=== PATIENT | female | born 1995 | race Caucasian/White ===

== ENCOUNTER 2020-03-15 16:50 | Emergency (ER) | payer SELFPAY ==
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
[2020-03-15 17:01] VITALS: BP 157/96; PULSE 99; RESP 18; TEMP 36.8; O2SAT 97; BMI 44.4
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
[2020-03-15 17:39] VITALS: BP 137/76; PULSE 87; RESP 18; O2SAT 97
[2020-03-15] MEDS: HYDROcodone-acetaminophen 7.5-325 mg Tablet 1 TAB PO (17:40)
[2020-03-15 18:21] VITALS: BP 107/81; PULSE 88; RESP 14; O2SAT 96
== END 2020-03-15 18:21 | disposition home or self-care (01) ==
PROVIDERS: Emergency Provider Physician Assistant
DX: S83.511A Sprain of anterior cruciate ligament of right knee, initial encounter (principal); V19.9XXA Pedal cyclist (driver) (passenger) injured in unspecified traffic accident, initial encounter
CPT/HCPCS: 12345; 73562; 99281; 99283; E0114

== ENCOUNTER → 2020-05-11 11:10 | Outpatient (BNVA) | payer SELFPAY | PROVIDERS: Visit Provider Nurse Practitioner Women's Health | DX: Z01.419 Encounter for gynecological examination (general) (routine) without abnormal findings (principal); N91.2 Amenorrhea, unspecified | CPT/HCPCS: 84146; 84443; 84702; 88175 ==

== ENCOUNTER 2020-05-27 15:16 | Emergency (ER) | payer SELFPAY ==
[2020-05-27 15:29] VITALS: BP 131/77; PULSE 97; RESP 16; TEMP 36.3; O2SAT 94; BMI 50.4
--- NOTE | 2020-05-27 15:38 | ED_ITS ---
HPI - General: Chief complaint: OB/Uterine Contractions Stated complaint: and spotting Time Seen by Provider: 05/27/20 15:33 Source: patient Mode of arrival: ambulatory Limitations: no limitations History of Present Illness: HPI Narrative: 24-year-old female who believes she may be a few weeks states she went to the bathroom today and had slight spotting. She denies any large amount of bleeding or clots. She denies any abdominal pain. Patient states she has had 2+ 's last 2 days at home. Complaint: vaginal bleeding Onset (ago): minute(s) Severity: mild Relieving factors: none Exacerbating factors: none Vaginal discharge: none Date of Last Menstrual Period: 01/15/20 Associated symptoms: Deny abdominal pain, headache(s), nausea or vomiting Review of Systems Const: Denies: fever(s), chills, body aches or change in appetite Eyes: Denies: blurry vision or eye discomfort ENMT: Denies: throat pain or dental pain Card: Denies: chest pain Resp: Denies: dyspnea GI: Denies: abdominal pain, nausea, vomiting or diarrhea : Reports: vaginal bleeding Musc: Denies: neck pain or back pain Skin/Breast: Denies: rash Neuro: Denies: headache(s) Psych: Denies: depression Álvaro/Lymph: Denies: easy bruising All/Imm: Denies: urticaria PFSH ED PFSH: Medical History History of gestational hypertension History of pre-eclampsia Surgical History H/O section (~2013) 1----06/10/2014, male([facility]), 6 lbs 7.5 ozs, 38 wks, epidural, c- section delivery unreasurring monitoring, delivered by Dr Maurice Olsen, at [place], [place]. No complications H/O eye surgery (~1998) left eye History of tonsillectomy and adenoidectomy Family History Father Hyperlipidemia Hypertension Denies family history of Diabetes Heart disease Family history of thyroid problem Stroke Social History Additional social history: - Tobacco use: Denies Alcohol use: Denies Drug use: Denies Female Reproductive History: Date of last menstrual period: 01/15/20 Physical Exam Const: COMMON NORMALS: no acute distress, patient oriented x3 and healthy appearing HENMT: COMMON NORMALS: normocephalic and atraumatic HEAD & SCALP: normocephalic and atraumatic Eye: COMMON NORMALS: Equal, round and reactive pupils present and EOMs intact bilaterally PUPIL: Yes Equal, round and reactive pupils present Neck/C-Spine: COMMON NORMALS: full ROM and supple Chest: COMMONS NORMALS: normal inspection of the chest and normal palpation of entire chest wall Resp: COMMON NORMALS: normal respiratory effort, No retractions, No use of accessory muscles and clear to auscultation bilaterally AUSCULTATION: clear to auscultation bilaterally Cardio: COMMON NORMALS: regular rate, regular rhythm and No murmurs present (Cardio) RATE: regular rate RHYTHM: regular rhythm GI: COMMON NORMALS: Normal to inspection, nondistended, normoactive bowel sounds present, Soft to palpation, non-tender and no masses PALPATION: Yes Soft to palpation Extremity: COMMON NORMALS: normal to inspection and full ROM Neuro: COMMON NORMALS: patient oriented x3, moves all extremities and no focal motor deficits Psych: COMMON NORMALS: mental status grossly normal, Normal thought process present and cooperative THOUGHT PROCESS: Normal thought process present Skin: COMMON NORMALS: no rashes or lesions noted and no wounds GENERAL SKIN EXAM: no rashes or lesions noted Course Vital Signs: Vital signs: Vital Signs Temperature 97.4 F L 05/27/20 15:29 Pulse Rate 97 05/27/20 15:29 Respiratory Rate 16 05/27/20 15:29 Blood Pressure 131/77 05/27/20 15:29 Pulse Oximetry 94 05/27/20 15:29 MDM - OB/Uterine Contractions MDM Narrative: Medical decision making narrative: Patient presents here with vaginal bleeding. Patient's blood test here is negative and blood count is normal. She is having no pain and she is stable for discharge. She is to follow-up with her primary care doctor in 3 to 5 days and return if worsening. She understands and agrees to plan. Lab Data: Labs: Lab Results 05/27/20 05/27/20 Range/Units 15:42 15:42 WBC 7.7 (4.0-10.0) 10^3/ uL RBC 5.33 H (4.1-5.3) 10^6/u L Hgb 14.6 (11.5-15.3) g/dL Hct 45.2 (37.0-47.0) % MCV 84.8 (81-99) fL MCH 27.4 L (28.0-34.0) pg MCHC 32.3 (30.0-36.0) g/dL RDW 12.7 (12.1-15.1) % Plt Count 278 (130-400) 10^3/c mm MPV 11.5 H (7.4-10.4) fL Neut % (Auto) 49.5 % Lymph % (Auto) 38.7 % [place] % (Auto) 7.6 % Eos % (Auto) 3.1 % Baso % (Auto) 0.8 % Neut # (Auto) 3.8 (1.8-7.7) 10^3/u L Lymph # (Auto) 3.0 (0.8-4.8) 10^3/u L [place] # (Auto) 0.6 (0.2-0.9) 10^3/u L Eos # (Auto) 0.2 (0.0-0.8) 10^3/u L Baso # (Auto) 0.1 (0.0-0.1) 10^3/u L Nucleated RBC % (a uto) 0 % Nucleated RBCs # 0.0 /100WBC Ser , Jing i-Qnt 0.50 mIU/mL Discharge Plan Discharge Patient Disposition: Home, Self-Care Clinical Impression: Vagina bleeding Condition: Stable Prescriptions: No Action silver sulfadiazine 1 % cream 1 applic TOPICAL BID 10 Days Qty: 50 RF: 0 ibuprofen 800 mg tablet 800 mg PO TID 10 Days Qty: 30 RF: 0 ketorolac 30 mg/mL solution 60 mg IM ONCE Qty: 2 RF: 0 cyclobenzaprine 10 mg tablet 10 mg PO TID PRN (Reason: muscle spasm) Qty: 20 RF: 0 medroxyprogesterone [Provera] 10 mg tablet 10 mg PO DAILY 10 Days Qty: 10 RF: 0 norgestimate-ethinyl estradiol [Sprintec (28)] 0.25-35 mg-mcg tablet 1 tab PO DAILY Qty: 28 RF: 2 Discharge Orders: Discharge Order (Routine); Ordered 05/27/20 Ordered By: Vannessa Coleman Discharge Diet: Advance as tolerated Discharge Activity: Resume usual activity Patient Instructions: Menstruation (ED) Coding Level of Care Code ED Chief Bank Examiner for [place] Fwd Exam Comprehensive
[2020-05-27 15:48] LABS: Basophils # 0.1 10^3/uL (0.0-0.1); Basophils % 0.8 %; Eosinophils # 0.2 10^3/uL (0.0-0.8); Eosinophils % 3.1 %; Hematocrit 45.2 % (37.0-47.0); Hemoglobin 14.6 g/dL (11.5-15.3); Lymphocytes % 38.7 %; Mean Corpuscular HGB Conc 32.3 g/dL (30.0-36.0); Mean Corpuscular Hemoglobin 27.4 pg (28.0-34.0); Mean Corpuscular Volume 84.8 fL (81-99); Mean Platelet Volume 11.5 fL (7.4-10.4); Monocytes # 0.6 10^3/uL (0.2-0.9); Monocytes % 7.6 %; Neutrophils # 3.8 10^3/uL (1.8-7.7); Neutrophils % 49.5 %; Nucleated Red Blood Cells % 0 %; Platelet Count 278 10^3/cmm (130-400); Red Blood Count 5.33 10^6/uL (4.1-5.3); Red Cell Distribution Width 12.7 % (12.1-15.1); White Blood Count 7.7 10^3/uL (4.0-10.0)
[2020-05-27 17:07] VITALS: PULSE 80; RESP 16; O2SAT 95
== END 2020-05-27 17:09 | disposition home or self-care (01) ==
PROVIDERS: Emergency Provider Emergency Medicine
DX: N93.9 Abnormal uterine and vaginal bleeding, unspecified (principal)
CPT/HCPCS: 12345; 36415; 84702; 85025; 86900; 99281; 99282

== ENCOUNTER → 2020-08-31 09:09 | Outpatient (BNVA) | payer MEDICAID, SELFPAY | PROVIDERS: Visit Provider Nurse Practitioner Women's Health | DX: N91.2 Amenorrhea, unspecified (principal); Q52.5 Fusion of labia | CPT/HCPCS: 84702 ==

== ENCOUNTER → 2020-09-21 09:37 | Outpatient (BNVA) | payer MEDICAID, SELFPAY | PROVIDERS: Visit Provider Nurse Practitioner Women's Health | DX: N91.2 Amenorrhea, unspecified (principal); R10.9 Unspecified abdominal pain | CPT/HCPCS: 84702 ==

== ENCOUNTER → 2021-06-11 10:29 | Outpatient (BNVA) | payer MEDICAID, SELFPAY | PROVIDERS: PCP Nurse Practitioner Family; Visit Provider Nurse Practitioner Family | DX: M54.9 Dorsalgia, unspecified (principal); E66.01 Morbid (severe) obesity due to excess calories; M54.5 Low back pain | CPT/HCPCS: 80053; 80061; 81000; 84443; 85025 ==

== ENCOUNTER → 2022-01-09 16:06 | Outpatient (BNVA) | payer MEDICAID, SELFPAY | PROVIDERS: PCP Nurse Practitioner Family; Visit Provider Nurse Practitioner Family | DX: N93.9 Abnormal uterine and vaginal bleeding, unspecified (principal) | CPT/HCPCS: 80053; 85025 ==

== ENCOUNTER → 2022-03-20 10:06 | Outpatient (BNVA) | payer MEDICAID, SELFPAY | PROVIDERS: PCP Nurse Practitioner Family; Visit Provider Nurse Practitioner Family | DX: T14.8XXA Other injury of unspecified body region, initial encounter (principal); N91.2 Amenorrhea, unspecified; S81.859A Open bite, unspecified lower leg, initial encounter; W54.0XXA Bitten by dog, initial encounter | CPT/HCPCS: 83540; 85025 ==

== ENCOUNTER 2022-04-12 12:49 | Emergency (ER) | payer MEDICAID, SELFPAY ==
[2022-04-12 12:59] VITALS: BP 110/73; PULSE 109; RESP 16; TEMP 37.1; O2SAT 98
[2022-04-12 13:27] LABS: Add Urine Microscopic? NO; Charge for UA Resulting for Rev
[2022-04-12 13:33] LABS: HCG Qualitative Urine. Negative (Negative)
[2022-04-12 13:34] LABS: Bilirubin Urine Neg (Negative); Blood Urine Neg (Negative); Glucose Urine UA Norm (Normal); Ketones Urine Negative (Negative); Leukocyte Esterase Urine Negative (Negative); Nitrate Urine Negative (Negative); Protein Urine Neg (Negative); Urine Appearance Clear (CLEAR); Urine Color Straw (Yellow); Urobilinogen Urine Norm (Negative); pH Urine 5 (5-7)
[2022-04-12] MEDS: sodium chloride 0.9% 1,000 ML 999 ML IV (13:36)
[2022-04-12] MEDS: dexamethasone 10 mg/mL INJ IVP (14:08)
[2022-04-12] MEDS: ketorolac 30 mg/mL INJ 15 MG IVP (14:09)
[2022-04-12] MEDS: ondansetron 2 mg/ML SDV 2 mL 4 MG IVP (14:09)
[2022-04-12 14:10] VITALS: BP 121/63; O2SAT 98
[2022-04-12] MEDS: diphenhydrAMINE 50 mg/mL SDV 1mL IVP (14:42)
[2022-04-12] MEDS: haloperidol inj 5 mg/mL INJ 1 mL IVP (14:42)
[2022-04-12 15:20] VITALS: BP 110/68; PULSE 88; RESP 19; O2SAT 94
--- NOTE | 2022-04-12 16:39 | ED_ITS ---
HPI - Headache General: Chief Complaint: Headache Stated Complaint: Headache all morning Time Seen by Provider: 04/12/22 12:50 History of Present Illness: 26 yo female patient presents to ER with her typical migraine and typical symptoms. Onset at 0600 today. Pt c/o head pain that feels like a tight band and photophobia. Pt c/o n/v. pt denies any trauma or injury or changes in vision. Associated symptoms: Deny chest pain, confusion, diaphoresis, fever(s), lightheadedness, malaise, pre-syncope, rash or syncope Review of Systems Const: Denies: fever(s), chills, body aches, change in appetite, change in weight, fatigue, malaise or diaphoresis Eyes: Denies: change in vision, blurry vision, blind spots, photophobia, eye discomfort, eye discharge, eye redness, floaters or seeing flashes ENMT: Denies: throat pain, uvular edema, enlarged tonsils, odynophagia, hoarseness, mouth pain, swelling of lips/tongue, oral sores, bleeding gums, dental pain, dry mouth, ear or mastoid pain, ear discharge, change in hearing, tinnitus, disequilibrium, nasal discharge, nasal congestion, post nasal drip or sinus pain Card: Denies: chest pain, palpitations, irregular heart rhythm, edema, swelling of feet/ankles, lightheadedness, syncope, pre-syncope, dyspnea on exertion, orthopnea, leg pain with exertion or acrocyanosis Resp: Denies: dyspnea, productive cough, non-productive cough, wheezing, stridor, pain on inspiration, change in phlegm color, hemoptysis or chest congestion GI: Denies: abdominal pain, hematemesis, dysphagia, diarrhea, constipation, GI cramping, change in bowel habits or rectal pain : Denies: flank pain, difficulty voiding, dysuria, urinary frequency, urinary urgency, urinary hesitancy or hematuria Musc: Denies: neck pain, back pain, extremity pain, extremity swelling, joint pain, joint swelling, joint redness, joint warmth or deformity Skin/Breast: Denies: rash, pruritus, erythema, sores, new lesions, changes in skin color or dry skin Neuro: Denies: numbness in extremities, weakness in extremities, sensory changes, lack of coordination, difficulty walking, frequent falls, dizziness, vertigo, confusion, behavioral changes, Slurred speech present, difficulty communicating thoughts or seizure-like activity Psych: Denies: anxiety, depression, suicidal ideation or homicidal ideation Endo: Denies: polyuria, polydipsia, tired all the time, cold intolerance, excessive sweating, flushing, hot flashes or heat intolerance Álvaro/Lymph: Denies: easy bruising, easy bleeding, petechiae, purpura, enlarged lymph nodes or tender lymph nodes All/Imm: Denies: urticaria, throat swelling, tongue swelling, facial swelling, acute wheezing or itchy eyes PFSH ED PFSH: Medical History History of gestational hypertension History of pre-eclampsia Labial fusion Surgical History H/O section (~2013) 1----06/10/2014, male([facility]), 6 lbs 7.5 ozs, 38 wks, epidural, c- section delivery unreasurring monitoring, delivered by Dr Maurice Olsen, at [place], [place]. No complications H/O eye surgery (~1998) left eye History of tonsillectomy and adenoidectomy Family History Father Hyperlipidemia Hypertension Denies family history of Diabetes Heart disease Family history of thyroid problem Stroke Social History Smoking and tobacco status: never smoked Additional social history: - Tobacco use: Denies Alcohol use: Denies Drug use: Denies Female Reproductive History: Date of last menstrual period: 03/24/22 Physical Exam Const: COMMON NORMALS: no acute distress, patient oriented x3, healthy appearing, alert and well nourished GENERAL APPEARANCE: cooperative, comfortable, well kempt and well developed; not ill appearing ORIENTATION/CONSCIOUSNESS: Yes awake, Yes oriented to person, Yes oriented to place and Yes oriented to time HENMT: COMMON NORMALS: normocephalic, atraumatic, hearing grossly normal bilaterally, external ears normal, EAC's normal, TM's normal bilaterally, Normal external nose present, Normal nasal mucous membranes and turbinates present and moist oral mucous membranes HEAD & SCALP: normal to inspection, normocephalic and atraumatic FACE & SINUS: normal facial exam, sinuses nontender and face symmetric NOSE: Normal external nose present, Normal nares present, Normal nasal mucous membranes and turbinates present, No nasal discharge present and Abnormal external nose present EXTERNAL EAR: Yes external ears normal and Yes mastoids normal EXTERNAL AUDITORY CANAL: EAC's normal TYMPANIC MEMBRANE: TM's normal bilaterally MOUTH: Normal oral and palatal mucosa present, lip normal, tongue normal and Normal salivary glands and ducts present THROAT: no uvular edema Eye: COMMON NORMALS: Equal, round and reactive pupils present, EOMs intact bilaterally and conjunctivae normal GENERAL EYE: appearance normal, both eyes and all related structures EYELID: eyelids normal CONJUNCTIVA: Yes conjunctivae normal SCLERA: sclerae normal CORNEA: Yes corneas normal PUPIL: Yes Equal, round and reactive pupils present Neck/C-Spine: COMMON NORMALS: full ROM, no lymphadenopathy, supple, no meningeal signs, no JVD and Thyroid normal GENERAL: Yes normal visual inspection and Yes trachea midline THYROID: Thyroid normal CERVICAL SPINE: Yes cervical ROM normal Lymph: LYMPHATIC: no lymphadenopathy noted and no lymphedema noted Chest: COMMONS NORMALS: normal inspection of the chest and normal palpation of entire chest wall Resp: COMMON NORMALS: normal respiratory effort, No retractions, No use of accessory muscles and clear to auscultation bilaterally EFFORT & INSPECTION: Yes able to speak in complete sentences and Yes symmetric chest movement AUSCULTATION: clear to auscultation bilaterally Cardio: COMMON NORMALS: no JVD, regular rate and regular rhythm RATE: regular rate RHYTHM: regular rhythm GI: COMMON NORMALS: Normal to inspection, nondistended, normoactive bowel sounds present, Soft to palpation, non-tender, No hepatosplenomegaly present, no masses and no bruits INSPECTION: Yes normal to inspection AUSCULTATION: Yes normoactive bowel sounds PALPATION: Yes Soft to palpation and Yes No hepatosplenomegaly present PERCUSSION: normal to percussion RECTAL EXAM: deferred : COMMON NORMALS: Yes no CVA tenderness, Yes normal external appearance, Yes normal appearance of the vagina, Yes normal appearance of the cervix, Yes normal bimanual exam, Yes No adnexal tenderness and Yes no masses BLADDER/KIDNEY EXAM: Yes no CVA tenderness BIMANUAL EXAM - VAGINA & UTERUS: Yes normal bimanual exam Back/Pelvis: COMMON NORMALS: no CVA tenderness Extremity: COMMON NORMALS: normal to inspection, full ROM and capillary refill normal GENERAL: Yes normal exam except as noted Neuro: COMMON NORMALS: patient oriented x3, CN's II-XII intact bilaterally, moves all extremities, no focal motor deficits, no sensory deficits noted and gait normal SENSORIUM/ORIENTATION: Yes alert, Yes oriented to person, Yes oriented to place and Yes oriented to time MENINGEAL SIGNS: Yes no meningeal signs CRANIAL NERVES: Yes CN normal except as noted SPEECH: speech normal GAIT: Yes Normal gait present SENSORY EXAM: Yes extremities MOTOR EXAM: 5/5 motor strength present throughout Psych: COMMON NORMALS: mental status grossly normal, Normal thought process present, cooperative, normal affect, speech normal, activity/motor behavior normal, denies hallucinations, denies homicidal ideation and denies suicidal ideation APPEARANCE: Yes grossly normal and Yes well kempt ATTITUDE: Yes calm ACTIVITY/MOTOR BEHAVIOR: Yes appropriate eye contact SPEECH: Yes normal speech THOUGHT PROCESS: Normal thought process present THOUGHT CONTENT: Yes Normal thought content present ATTENTION/CONCENTRATION: Yes attention grossly intact MEMORY/COGNITION: Yes memory grossly intact INSIGHT: Good insight present (Psych) JUDGEMENT: Good judgement present (Psych) Skin: COMMON NORMALS: no rashes or lesions noted, no wounds, turgor normal, no jaundice, no petechiae and no mottling GENERAL SKIN EXAM: no rashes or lesions noted and turgor normal Course Vital Signs: Vital signs: Vital Signs Temperature 98.8 F 04/12/22 12:59 Pulse Rate 88 04/12/22 15:20 Respiratory Rate 19 H 04/12/22 15:20 Blood Pressure 110/68 04/12/22 15:20 Pulse Oximetry 94 04/12/22 15:20 MDM - Headache Medical Decision Making Patient is well appearing non toxic and in no acute distress. 26 yo female patient presents to ER with her typical migraine and typical symptoms. Onset at 0600 today. Pt c/o head pain that feels like a tight band and photophobia. Pt c/o n/v. pt denies any trauma or injury or changes in vision. Pt was treated with IV normal saline 1 liter, zofran, haldol and decadron and had resolution of syptoms. Pt has no red flag symptoms. I have advised patient to follow up with PCP for preventive treatment. Return precautions advised and home care reviewed Lab Data Laboratory Results HCG, Qual Negative (Negative) 04/12/22 13:05 Urine Color Straw (Yellow) 04/12/22 13:05 Urine Appearance Clear (CLEAR) 04/12/22 13:05 Urine pH 5 (5-7) 04/12/22 13:05 Ur Specific [place] 1.010 (1.005-1.030) 04/12/22 13:05 Urine Protein Neg (Negative) 04/12/22 13:05 Urine Glucose (UA) Norm (Normal) 04/12/22 13:05 Urine Ketones Negative (Negative) 04/12/22 13:05 Urine Blood Neg (Negative) 04/12/22 13:05 Urine Nitrate Negative (Negative) 04/12/22 13:05 Urine Bilirubin Neg (Negative) 04/12/22 13:05 Urine Urobilinogen Norm mg/dL (Negative) 04/12/22 13:05 Ur Leukocyte Esterase Negative (Negative) 04/12/22 13:05 Discharge Plan Discharge Patient Disposition: Home Clinical Impression: Migraine Condition: Stable Prescriptions: No Action rizatriptan [Maxalt] 10 mg tablet See Rx Instructions PO .COMPLEX Qty: 10 0RF Rx Instructions: take 1 tab at onset of headache; if no relief may repeat 1 tab after at least 2 hrs; max = 3 tabs/24 hr PO prenat.vits,maya,[id number]-isser Tablet 1 tab PO DAILY 0RF ibuprofen 800 mg tablet 800 mg PO TID PRN (Reason: pain) Qty: 42 0RF cyclobenzaprine 10 mg tablet 10 mg PO TID PRN (Reason: muscle spasm) Qty: 20 0RF amoxicillin-pot clavulanate 875-125 mg tablet 1 tab PO BID Qty: 20 0RF topiramate [Topamax] 50 mg tablet 50 mg PO BID Qty: 60 2RF loratadine [Claritin] 10 mg tablet 10 mg PO DAILY Qty: 30 2RF promethazine-DM 6.25-15 mg/5 mL syrup 5 - 10 ml PO Q6H PRN (Reason: cough) Qty: 240 0RF Contrave 8-90 mg tablet extended release 2 tab PO BID 30 Days Qty: 120 0RF Discharge Orders: Discharge ED (Routine); Ordered 04/12/22 Ordered By: Yumiko Bone Referrals: Nina Steen FNP-C [Primary Care Provider] - Discharge Diet: Advance as tolerated Discharge Activity: Resume usual activity Patient Instructions: Opioid Safety Activity Restrictions/Additional Instructions: Please return to ER with any worsening of symotoms Please follow up with your PCP for migraine preventative treatment Coding Level of Care Code ED Senior [employer] Developer for Conrado Loja
[2022-04-12 17:13] VITALS: BP 124/78; PULSE 81; RESP 18; O2SAT 96
== END 2022-04-12 17:15 | disposition home or self-care (01) ==
PROVIDERS: Emergency Provider Registered Nurse; PCP Nurse Practitioner Family
DX: G43.909 Migraine, unspecified, not intractable, without status migrainosus (principal)
CPT/HCPCS: 81003; 81025; 96361; 96374; 96375; 99284; J1100; J1200; J1630; J1885; J2405; J7030

== ENCOUNTER → 2022-06-20 14:22 | Outpatient (BNVA) | payer MEDICAID, SELFPAY | PROVIDERS: PCP Nurse Practitioner Family; Visit Provider Nurse Practitioner Family | DX: M54.9 Dorsalgia, unspecified (principal); K21.9 Gastro-esophageal reflux disease without esophagitis; L21.9 Seborrheic dermatitis, unspecified | CPT/HCPCS: 81000 ==

== ENCOUNTER → 2022-07-31 09:34 | Outpatient (BNVA) | payer MEDICAID, SELFPAY | PROVIDERS: PCP Nurse Practitioner Family; Visit Provider Nurse Practitioner Family | DX: R25.2 Cramp and spasm (principal); E66.01 Morbid (severe) obesity due to excess calories; M79.604 Pain in right leg; M79.605 Pain in left leg; F41.9 Anxiety disorder, unspecified | CPT/HCPCS: 80053 ==

== ENCOUNTER → 2022-08-13 13:29 | Outpatient (BNVA) | payer MEDICAID, SELFPAY | PROVIDERS: PCP Nurse Practitioner Family; Visit Provider Nurse Practitioner Family | DX: R11.0 Nausea (principal); E66.01 Morbid (severe) obesity due to excess calories; Z68.43 Body mass index [BMI] 50.0-59.9, adult | CPT/HCPCS: 80053; 80061; 84443 ==

== ENCOUNTER 2022-11-08 17:12 | Emergency (ER) | payer SELFPAY ==
[2022-11-08 17:17] VITALS: BP 149/96; PULSE 87; RESP 16; TEMP 36.5; O2SAT 97; BMI 50.6
--- NOTE | 2022-11-08 17:50 | ED_ITS ---
HPI - Female Genitourinary General: Chief complaint: Urogenital-Female Stated complaint: rash on groin Time Seen by Provider: 11/08/22 17:29 Source: patient Mode of arrival: ambulatory Limitations: no limitations History of Present Illness: 27-year-old female presents emergency room complaining of vaginal discharge and painful vaginal lesions that she describes as milk blisters . They are interlabial. Patient has had the symptoms for the last 2 weeks. She has not seen her primary care doctor. MD elicited complaint: vaginal discharge Onset (ago): week(s) (2) Location of symptoms: external genitalia Severity: mild Quality of pain: sharp Vaginal discharge: white and vaginal odor Vaginal bleeding: none Urinary symptoms: Dysuria Exacerbating factors: none Relieving factors: none Associated symptoms: Reports vaginal discharge; Deny abdominal pain, short of breath, fevers/chills, headache(s), nausea, rash, seizures, syncope, vaginal bleeding or weakness Treatment prior to arrival: none Sexual activity: Yes Date of Last Menstrual Period: 03/24/22 Review of Systems Const: Denies: fever(s), chills, body aches, change in appetite, fatigue or malaise ENMT: Denies: throat pain, ear or mastoid pain, nasal discharge or nasal congestion Card: Denies: chest pain, palpitations, irregular heart rhythm or syncope Resp: Denies: dyspnea, productive cough or non-productive cough GI: Denies: abdominal pain or nausea : Reports: dysuria and vaginal discharge; Denies: urinary frequency, urinary urgency or genital pruritis Skin/Breast: Denies: rash or pruritus Neuro: Denies: headache(s) PFSH ED PFSH: Medical History History of gestational hypertension History of pre-eclampsia Labial fusion Surgical History H/O section (~2013) 1----06/10/2014, male([facility]), 6 lbs 7.5 ozs, 38 wks, epidural, c- section delivery unreasurring monitoring, delivered by Dr Maurice Olsen, at [place], [place]. No complications H/O eye surgery (~1998) left eye History of tonsillectomy and adenoidectomy Family History Father Hyperlipidemia Hypertension Denies family history of Diabetes Heart disease Family history of thyroid problem Stroke Social History Smoking and tobacco status: never smoked Additional social history: - Tobacco use: Denies Alcohol use: Denies Drug use: Denies Female Reproductive History: Date of last menstrual period: 03/24/22 Physical Exam Const: COMMON NORMALS: no acute distress GENERAL APPEARANCE: cooperative and comfortable ORIENTATION/CONSCIOUSNESS: Yes awake, Yes oriented to person, Yes oriented to place and Yes oriented to time HENMT: COMMON NORMALS: normocephalic and atraumatic HEAD & SCALP: normocep halic and atraumatic : SPECULUM EXAM - VAGINA: No vaginal bleeding OB/EXTERNAL & SPECULUM: No vaginal bleeding OTHER: Patient placed in dorsolithotomy position and her aspect of the mine labia minora there are herpetic-like lesions noted particularly anteriorly on the left they are exquisitely tender to palpation. Patient has very difficult time with speculum exam speculum introduced white patchy exudate in the vaginal canal wet mount GC and chlamydia done. Neuro: SENSORIUM/ORIENTATION: Yes oriented to person, Yes oriented to place and Yes oriented to time Skin: COMMON NORMALS: no rashes or lesions noted GENERAL SKIN EXAM: no rashes or lesions noted Course Vital Signs: Vital signs: Vital Signs Temperature 97.7 F 11/08/22 17:17 Pulse Rate 87 11/08/22 17:17 Respiratory Rate 16 11/08/22 17:17 Blood Pressure 149/96 11/08/22 17:17 Pulse Oximetry 97 11/08/22 17:17 Oxygen Delivery Me thod 11/08/22 17:17 MDM - Female Medical Decision Making Lesions consistent at the time of exam with herpes. GC and Chlamydia are pending she also had white exudate and patches in the vaginal canal consistent with yeast infection. Treat for genital herpes with Valtrex and start Diflucan. We will call patient with other results when available. 1993 Wet mount shows trichomonas and yeast GC and Chlamydia were negative patient will be called with results of trichomonas and started on metronidazole. Medical Records I reviewed the patient's medical records. Lab Data I reviewed the patient's lab results. Discharge Plan Discharge Patient Disposition: Home Clinical Impression: Genital herpes, Vaginal candidiasis, Trichomonas vaginitis Condition: Stable Prescriptions: New Valtrex 1 gram tablet 1,000 mg PO TID 7 Days Qty: 21 0RF fluconazole 150 mg tablet 150 mg PO Q3D Qty: 2 0RF Rx Instructions: may repeat second dose 72 hrs after first dose if symptoms persist metronidazole 500 mg tablet 500 mg PO BID 7 Days Qty: 14 0RF No Action rizatriptan [Maxalt] 10 mg tablet See Rx Instructions PO .COMPLEX Qty: 10 0RF Rx Instructions: take 1 tab at onset of headache; if no relief may repeat 1 tab after at least 2 hrs; max = 3 tabs/24 hr PO prenat.vits,maya,[id number] Tablet 1 tab PO DAILY ondansetron HCl 4 mg tablet 4 mg PO Q6H PRN (Reason: nausea and vomiting) Qty: 90 1RF Ozempic 0.25 mg or 0.5 mg(2 mg/1.5 mL) pen injector See Rx Instructions SUBCUT .COMPLEX Qty: 1.5 3RF Rx Instructions: 1 mg wkly subcutaneously x 4 weeks, then 1.5 mg wkly subcutaneously; Flovent HFA 110 mcg/actuation HFA aerosol inhaler 1 puff inhalation Q12H Qty: 12 2RF omeprazole 40 mg capsule,delayed release(DR/EC) 40 mg PO DAILY 30 Days Qty: 30 0RF topiramate [Topamax] 50 mg tablet 50 mg PO BID Qty: 60 2RF loratadine [Claritin] 10 mg tablet 10 mg PO DAILY Qty: 30 2RF simvastatin 20 mg tablet 20 mg PO .QHS 30 Days Qty: 30 3RF Discharge Orders: Discharge ED (Routine); Ordered 11/08/22 Ordered By: Melecio Flores Referrals: Elsa Parker NP [Primary Care Provider] - Patient Instructions: Opioid Safety, Pain Management Activity Restrictions/Additional Instructions: You are seen for vaginal discharge patient on your exam you have herpes as well as vaginal candidiasis. We will treat the herpetic infection with acyclovir 1 g 3 times daily for 7 days. Diflucan is 1 tablet every other day 2 doses total. Follow-up with your primary care doctor. Coding Level of Care Code ED Curriculum And Assessment Director for Chg Fwd Exam Expanded Problem Focused
[2022-11-08] MEDS: ketorolac 60 mg/2 mL INJ IM (18:27)
--- NOTE | 2022-11-10 08:51 | PC.NURSE ---
PC TO PT AND INFORMED HER OF TESTING POSITIVE FOR TRICHOMONAS. SHE VERBALIZED UNDERSTANDING AND STATED THAT SHE [facility] [place] DELEGATED TO [facility] TECHNICIAN TO CALL IN [facility]ERS[facility] SHE VERBALIZED UNDERSTANDING.
== END 2022-11-08 18:25 | disposition home or self-care (01) ==
PROVIDERS: Emergency Provider Family Medicine; PCP Nurse Practitioner Family
DX: A60.00 Herpesviral infection of urogenital system, unspecified (principal); B37.31 Acute candidiasis of vulva and vagina; A59.01 Trichomonal vulvovaginitis
CPT/HCPCS: 87210; 87491; 87591; 96372; 99284; J1885

== ENCOUNTER → 2023-01-13 16:11 | Outpatient (BNVA) | payer SELFPAY | PROVIDERS: PCP Nurse Practitioner Family; Visit Provider Nurse Practitioner Family | DX: F41.9 Anxiety disorder, unspecified (principal); E66.01 Morbid (severe) obesity due to excess calories; Z68.43 Body mass index [BMI] 50.0-59.9, adult; R07.81 Pleurodynia; W19.XXXA Unspecified fall, initial encounter; E78.2 Mixed hyperlipidemia; R03.0 Elevated blood-pressure reading, without diagnosis of hypertension | CPT/HCPCS: 80053; 80061 ==

== ENCOUNTER 2023-03-15 17:31 | Emergency (ER) | payer SELFPAY ==
[2023-03-15 17:35] VITALS: BP 138/86; PULSE 82; TEMP 36.3; O2SAT 98; BMI 44.4
[2023-03-15 18:07] LABS: Bilirubin Urine Neg (Negative); Blood Urine Neg (Negative); Glucose Urine UA Norm (Normal); Ketones Urine Negative (Negative); Leukocyte Esterase Urine Trace (Negative); Nitrate Urine Negative (Negative); Protein Urine Neg (Negative); Urine Appearance Hazy (CLEAR); Urine Color Yellow (Yellow); Urobilinogen Urine Norm (Negative); pH Urine 6 (5-7)
[2023-03-15 18:08] LABS: Add Urine Culture? No; Add Urine Microscopic? YES; Bacteria Urine 1+ /hpf; Squamous Epithelial Cell Urine 15-25 /hpf (0-5)
[2023-03-15 18:20] LABS: Basophils # 0.1 10^3/uL (0.0-0.1); Basophils % 0.6 %; Eosinophils # 0.2 10^3/uL (0.0-0.8); Hematocrit 42.4 % (37.0-47.0); Hemoglobin 13.7 g/dL (11.5-15.3); Lymphocytes # 3.1 10^3/uL (0.8-4.8); Lymphocytes % 33.6 %; Mean Corpuscular HGB Conc 32.3 g/dL (30.0-36.0); Mean Corpuscular Hemoglobin 26.4 pg (28.0-34.0); Mean Corpuscular Volume 81.7 fl (81-99); Mean Platelet Volume 11.7 fL (7.4-10.4); Monocytes # 0.6 10^3/uL (0.2-0.9); Monocytes % 6.1 %; Neutrophils # 5.23 10^3/uL (1.8-7.7); Neutrophils % 57.6 %; Nucleated Red Blood Cells % 0 %; Platelet Count 315 10^3/cmm (130-400); Red Blood Count 5.19 10^6/uL (4.1-5.3); Red Cell Distribution Width 12.7 % (12.1-15.1); White Blood Count 9.1 10^3/uL (4.0-10.0)
[2023-03-15 18:33] LABS: HCG, Serum Qual Negative (Negative)
[2023-03-15 18:41] LABS: Alanine Aminotransferase 32 U/L (0-33); Albumin Level 4.5 g/dL (3.5-5.2); Alkaline Phosphatase 75 U/L (35-105); Anion Gap 12.9 (5-19); Aspartate Amino Transferase 26 U/L (0-32); Blood Urea Nitrogen 12 mg/dL (6-20); Calcium 9.4 mg/dL (8.5-10.5); Carbon Dioxide 25 mmol/L (22-29); Chloride 97 mmol/L (98-107); Globulin 2.8 g/dL (1.3-4.6); Glomerular Filtration Rate 118.2 mL/min (90-130); Glucose 95 mg/dL (65-115); Lipase 41 U/L (13-60); Osmolality Calculated 272 mOsm/kg (285-295); Potassium 3.9 mmol/L (3.5-5.1); Sodium 131 mmol/L (136-145); Total Bilirubin 0.2 mg/dL (0.15-1.2); Total Protein 7.3 g/dL (6.6-8.7)
--- NOTE | 2023-03-15 21:02 | ED_ITS ---
HPI - Abdominal Pain General: Chief Complaint: Abdominal Pain Stated Complaint: abd pains Time Seen by Provider: 03/15/23 21:02 History of Present Illness: Ms. Kline is a 27-year-old lady with history of presenting to the emergency department for left upper quadrant abdominal pain. Reports onset of symptoms gradually 3 days ago and has subsequently worsened and persisted. She notes associated nausea but no vomiting, no changes in bowel movement or changes urinating. Intensity is moderate to severe. Course has worsened. Worse with ambulation and palpation. Denies frequent similar episodes in the past. No other specific changes in health, exacerbating, or alleviating factors identified. Onset (ago): day(s) Location: LUQ Severity: severe Migration to: no migration Exacerbating factors: movement and other Associated Symptoms: Reports nausea Review of Systems General: Reports: 10 or more systems reviewed and unremarkable except in HPI and below GI: Reports: nausea COUNT INCLUDES THE [facility] ED PFSH: Medical History History of gestational hypertension History of pre-eclampsia Labial fusion Surgical History H/O section (~2013) 1----06/10/2014, male(Hebert), 6 lbs 7.5 ozs, 38 wks, epidural, c- section delivery unreasurring monitoring, delivered by Dr Maurice Olsen, at [facility], [place], [place]. No complications H/O eye surgery (~1998) left eye History of tonsillectomy and adenoidectomy Family History Father Hyperlipidemia Hypertension Denies family history of Diabetes Heart disease Family history of thyroid problem Stroke Social History Smoking and tobacco status: never smoked Substance/Drug Use: never Additional social history: - Tobacco use: Denies Alcohol use: Denies Drug use: Denies Physical Exam Const: COMMON NORMALS: alert GENERAL APPEARANCE: cooperative and well developed HENMT: COMMON NORMALS: normocephalic and atraumatic HEAD & SCALP: n ormocephalic and atraumatic Eye: COMMON NORMALS: conjunctivae normal CONJUNCTIVA: Yes conjunctivae normal SCLERA: sclerae normal Neck/C-Spine: COMMON NORMALS: supple GENERAL: Yes trachea midline Resp: COMMON NORMALS: normal respiratory effort EFFORT & INSPECTION: Yes able to speak in complete sentences Cardio: COMMON NORMALS: regular rate and regular rhythm RATE: regular rate RHYTHM: regular rhythm GI: COMMON NORMALS: Soft to palpation PALPATION: Yes Soft to palpation, Yes Tenderness to palpation present (GI) Details: LUQ, No Guarding due to palpation present (GI) and No Rigid due to palpation Extremity: GENERAL: Yes normal exam except as noted and No edema Neuro: COMMON NORMALS: moves all extremities SENSORIUM/ORIENTATION: Yes alert and No Orientation impaired Psych: COMMON NORMALS: mental status grossly normal and Normal thought process present THOUGHT PROCESS: Normal thought process present Course Vital Signs: Vital signs: Vital Signs Temperature 97.3 F L 03/15/23 17:35 Pulse Rate 78 03/15/23 23:01 Respiratory Rate 20 H 03/15/23 23:01 Blood Pressure 137/82 03/15/23 23:01 Pulse Oximetry 99 03/15/23 23:01 Oxygen Delivery Me thod Room Air 03/15/23 21:35 MDM - Abdominal Pain Medical Decision Making 27-year-old lady presenting with abdominal symptoms. Exam as above, she is nontoxic and there is no evidence of acute surgical abdomen. No significant hematologic abnormalities, perhaps mild dehydration noted on metabolic panel of the this may be erroneous given other abnormally low readings. Squamous epithelial contamination without convincing evidence of urinary tract infection on urinalysis.. CT imaging suggestive of enteritis, she has hepatic steatosis and hepatomegaly. Incidental findings and results of CT imaging discussed with patient. Most likely etiology of patient's symptoms is enteritis. He is improved with analgesia and able to tolerate p.o. intake. The results of ED evaluation were discussed with the patient including prescriptions and/or symptomatic cares (if applicable) including appropriate and responsible use, followup plan, and return precautions. The patient verbalized understanding and felt safe for discharge. Medical Records I reviewed the patient's medical records. Lab Data I reviewed the patient's lab results. 03/15/23 18:15 03/15/23 18:15 Labs/Radiology: Radiology Impressions Abdomen/Pelvis CT 03/15/23 21:14 IMPRESSION: 1. Prominent fluid in the small bowel without dilation suggestive of an enteritis, please correlate clinically 2. Hepatic steatosis. 3. Hepatomegaly. Laboratory Results WBC 9.1 10^3/uL (4.0-10.0) 03/15/23 18:15 RBC 5.19 10^6/uL (4.1-5.3) 03/15/23 18:15 Hgb 13.7 g/dL (11.5-15.3) 03/15/23 18:15 Hct 42.4 % (37.0-47.0) 03/15/23 18:15 MCV 81.7 fl (81-99) 03/15/23 18:15 MCH 26.4 pg (28.0-34.0) L 03/15/23 18:15 MCHC 32.3 g/dL (30.0-36.0) 03/15/23 18:15 RDW 12.7 % (12.1-15.1) 03/15/23 18:15 Plt Count 315 10^3/cmm (130-400) 03/15/23 18:15 MPV 11.7 fL (7.4-10.4) H 03/15/23 18:15 Neut % (Auto) 57.6 % 03/15/23 18:15 Lymph % (Auto) 33.6 % 03/15/23 18:15 [place]lier % (Auto) 6.1 % 03/15/23 18:15 Eos % (Auto) 2.0 % 03/15/23 18:15 Baso % (Auto) 0.6 % 03/15/23 18:15 Neut # (Auto) 5.23 10^3/uL (1.8-7.7) 03/15/23 18:15 Lymph # (Auto) 3.1 10^3/uL (0.8-4.8) 03/15/23 18:15 Collier # (Auto) 0.6 10^3/uL (0.2-0.9) 03/15/23 18:15 Eos # (Auto) 0.2 10^3/uL (0.0-0.8) 03/15/23 18:15 Baso # (Auto) 0.1 10^3/uL (0.0-0.1) 03/15/23 18:15 Nucleated RBC % (auto) 0 % 03/15/23 18:15 Nucleated RBCs # 0.0 /100WBC 03/15/23 18:15 Sodium 131 mmol/L (136-145) L 03/15/23 18:15 Potassium 3.9 mmol/L (3.5-5.1) 03/15/23 18:15 Chloride 97 mmol/L (98-107) L 03/15/23 18:15 Carbon Dioxide 25 mmol/L (22-29) 03/15/23 18:15 Anion Gap 12.9 (5-19) 03/15/23 18:15 BUN 12 mg/dL (6-20) 03/15/23 18:15 Creatinine 0.6 mg/dL (0.5-0.9) 03/15/23 18:15 GFR Calculation 118.2 mL/min (90-130) 03/15/23 18:15 Glucose 95 mg/dL (65-115) 03/15/23 18:15 Calculated Osmolality 272 mOsm/kg (285-295) L 03/15/23 18:15 Calcium 9.4 mg/dL (8.5-10.5) 03/15/23 18:15 Total Bilirubin 0.2 mg/dL (0.15-1.2) 03/15/23 18:15 AST 26 U/L (0-32) 03/15/23 18:15 ALT 32 U/L (0-33) 03/15/23 18:15 Alkaline Phosphatase 75 U/L (35-105) 03/15/23 18:15 Total Protein 7.3 g/dL (6.6-8.7) 03/15/23 18:15 Albumin 4.5 g/dL (3.5-5.2) 03/15/23 18:15 Globulin 2.8 g/dL (1.3-4.6) 03/15/23 18:15 Lipase 41 U/L (13-60) 03/15/23 18:15 HCG, Qual Negative (Negative) 03/15/23 18:15 Urine Color Yellow (Yellow) 03/15/23 17:45 Urine Appearance Hazy (CLEAR) A 03/15/23 17:45 Urine pH 6 (5-7) 03/15/23 17:45 Ur Specific [place] 1.020 (1.005-1.030) 03/15/23 17:45 Urine Protein Neg (Negative) 03/15/23 17:45 Urine Glucose (UA) Norm (Normal) 03/15/23 17:45 Urine Ketones Negative (Negative) 03/15/23 17:45 Urine Blood Neg (Negative) 03/15/23 17:45 Urine Nitrate Negative (Negative) 03/15/23 17:45 Urine Bilirubin Neg (Negative) 03/15/23 17:45 Urine Urobilinogen Norm mg/dL (Negative) 03/15/23 17:45 Ur Leukocyte Esterase Trace (Negative) H 03/15/23 17:45 Urine RBC None /hpf (0-2) 03/15/23 17:45 Urine WBC 5-10 /hpf (0-5) H 03/15/23 17:45 Ur Squamous Epith Cells 15-25 /hpf (0-5) H 03/15/23 17:45 Amorphous Sediment Not Reportable 03/15/23 17:45 Urine Bacteria 1+ /hpf (NONE) H 03/15/23 17:45 Discharge Plan Discharge Patient Disposition: Home Clinical Impression: Abdominal pain, Enteritis, Fatty infiltration of liver, Enlarged liver Condition: Stable Prescriptions: New ondansetron 4 mg tablet,disintegrating 4 mg PO Q8H PRN (Reason: nausea and vomiting) Qty: 15 0RF oxycodone 5 mg tablet 5 mg PO Q4H PRN (Reason: pain) Qty: 10 0RF No Action rizatriptan [Maxalt] 10 mg tablet See Rx Instructions PO .COMPLEX Qty: 10 0RF Rx Instructions: take 1 tab at onset of headache; if no relief may repeat 1 tab after at least 2 hrs; max = 3 tabs/24 hr PO prenat.vits,maya,[id number] Tablet 1 tab PO DAILY ondansetron HCl 4 mg tablet 4 mg PO Q6H PRN (Reason: nausea and vomiting) Qty: 90 1RF paroxetine HCl [Paxil] 10 mg tablet 10 mg PO DAILY 30 Days Qty: 30 0RF hydroxyzine HCl 25 mg tablet 25 mg PO TID PRN (Reason: anxiety) Qty: 90 0RF Ozempic 0.25 mg or 0.5 mg(2 mg/1.5 mL) pen injector 2 mg SUBCUT .weekly 28 Days Qty: 3 3RF lisinopril 5 mg tablet 5 mg PO DAILY 30 Days Qty: 30 0RF Flovent HFA 110 mcg/actuation HFA aerosol inhaler 1 puff inhalation Q12H Qty: 12 2RF omeprazole 40 mg capsule,delayed release(DR/EC) 40 mg PO DAILY 30 Days Qty: 30 0RF pantoprazole [Protonix] 40 mg tablet,delayed release (DR/EC) 40 mg PO DAILY Qty: 30 0RF topiramate [Topamax] 50 mg tablet 50 mg PO BID Qty: 60 2RF loratadine [Claritin] 10 mg tablet 10 mg PO DAILY Qty: 30 2RF simvastatin 40 mg tablet 40 mg PO .QHS 30 Days Qty: 30 3RF Discharge Orders: Discharge ED (Routine); Ordered 03/15/23 Ordered By: Marcus Emmanuel Referrals: Elsa Parker NP [Primary Care Provider] - Discharge Diet: Advance as tolerated and Clear Liquid Discharge Activity: Increase activity as tolerated Patient Instructions: Abdominal Pain (ED), Enteritis (ED), Opioid Safety Activity Restrictions/Additional Instructions: Thank you for visiting the emergency department. You were seen and evaluated for abdominal pain. The most likely cause of your symptoms it is related to enteritis which is nonspecific infection or inflammation of the small bowel. Given symptoms and historical factors this most likely is viral in nature. The treatment is supportive. I will prescribe antinausea medication and oxycodone. Use oxycodone cautiously as it is an opioid. You may use [id number] medications such as acetaminophen and ibuprofen for pain however please do not exceed the daily recommended dosage as listed on the packaging and please keep in mind that many namebrand medications contain the same active ingredients. Please avoid these medications if previously instructed to do so by another physician due to other underlying medical condition. Please ensure that you are staying hydrated. I recommend clear liquid diet for at least 1 day followed by slow advancing as tolerated starting with bland food. Please follow-up with your primary care provider. Return to the emergency department for uncontrolled symptoms or anything else that you are concerned about and feel needs emergency department evaluation. Coding Level of Care Code ED Iron Pourer for Conrado Loja
--- NOTE | 2023-03-15 21:14 | CTR_ITS ---
PROCEDURE INFORMATION: Exam: CT Abdomen And Pelvis With Contrast Exam date and time: 03/15/2023 9:59 PM Age: 27 years old Clinical indication: Abdominal pain; Localized; Left upper quadrant (luq); Prior surgery; Surgery type: C-sec; Additional info: Luq pain, nausea TECHNIQUE: Imaging protocol: Computed tomography of the abdomen and pelvis with contrast. Radiation optimization: All CT scans at this facility use at least one of these dose optimization techniques: automated exposure control; mA and/or kV adjustment per patient size (includes targeted exams where dose is matched to clinical indication); or iterative reconstruction. Contrast material: OMNI 350; Contrast volume: 100 ml; Contrast route: INTRAVENOUS (IV); REPORTING DATA: Count of CT and Cardiac NM exams in prior 12 months: This patient has received 0 known CTs and 0 known cardiac nuclear medicine studies in the 12 months prior to the current study. COMPARISON: CT abdomen pelvis w con* [id number] 08/10/2019 9:00 PM RADIATION DOSE METRICS: Total DLP (mGy-cm): 1242.29 FINDINGS: Liver: Hepatic steatosis. Hepatomegaly. Gallbladder and bile ducts: Normal. No calcified stones. No ductal dilation. Pancreas: Normal. No ductal dilation. Spleen: Normal. No splenomegaly. Adrenal glands: Normal. No mass. Kidneys and ureters: Normal. No hydronephrosis. Stomach and bowel: Prominent fluid in the small bowel without dilation suggestive of an enteritis, please correlate clinically Appendix: No evidence of appendicitis. Intraperitoneal space: Unremarkable. No free air. No significant fluid collection. Vasculature: Unremarkable. No abdominal aortic aneurysm. Lymph nodes: Unremarkable. No enlarged lymph nodes. Urinary bladder: Unremarkable as visualized. Reproductive: Unremarkable as visualized. Bones/joints: Unremarkable. No acute fracture. Soft tissues: Unremarkable. CT/CT abdomen pelvis w con* [id number] IMPRESSION: 1. Prominent fluid in the small bowel without dilation suggestive of an enteritis, please correlate clinically 2. Hepatic steatosis. 3. Hepatomegaly.
[2023-03-15] MEDS: iohexol 350 mg/mL 500 mL Btl (per mL) IV (21:21)
[2023-03-15 21:35] VITALS: BP 136/97; PULSE 86; RESP 20; O2SAT 97
[2023-03-15 21:42] VITALS: RESP 20; O2SAT 98
[2023-03-15] MEDS: fentaNYL 50 mcg/mL INJ 2mL IVP (21:42)
[2023-03-15] MEDS: ketorolac 30 mg/mL INJ 15 MG IVP (21:43)
[2023-03-15 23:01] VITALS: BP 137/82; PULSE 78; RESP 20; O2SAT 99
== END 2023-03-15 23:04 | disposition home or self-care (01) ==
PROVIDERS: Emergency Medicine; Emergency Provider Emergency Medicine; PCP Nurse Practitioner Family
DX: K52.9 Noninfective gastroenteritis and colitis, unspecified (principal); K76.0 Fatty (change of) liver, not elsewhere classified
CPT/HCPCS: 36415; 74177; 80053; 81001; 83690; 84703; 85025; 96374; 96375; 99285; J1885; J3010; Q9967

== ENCOUNTER 2023-05-25 16:34 | Emergency (ER) | payer SELFPAY ==
[2023-05-25 16:59] VITALS: BP 153/100; PULSE 95; RESP 14; TEMP 36.9; O2SAT 97; BMI 49.6
--- NOTE | 2023-05-25 18:38 | ED_ITS ---
HPI - General Adult General: Chief complaint: General Medical Stated complaint: sunburn Time Seen by Provider: 05/25/23 18:33 Source: patient Mode of arrival: ambulatory Limitations: no limitations History of Present Illness: 27-year-old female states she went floating on Thursday got a sunburn to bilateral lower legs. States that she had pain yesterday and worsening today along with some tingling. States her pain is sharp in nature she denies any improving or worsening factors. Associated symptoms: Deny chest pain, dyspnea, headache(s), nausea, rash or v omiting Review of Systems Const: Denies: fever(s) or chills Eyes: Denies: blurry vision ENMT: Denies: throat pain or dental pain Card: Denies: chest pain Resp: Denies: dyspnea GI: Denies: abdominal pain, nausea, vomiting or diarrhea Musc: Denies: neck pain or back pain Skin/Breast: Reports: erythema; Denies: rash Neuro: Denies: headache(s) PFS ED PFSH: Medical History History of gestational hypertension History of pre-eclampsia Labial fusion Surgical History H/O section (~2013) 1----06/10/2014, male(Hebert), 6 lbs 7.5 ozs, 38 wks, epidural, c- section delivery unreasurring monitoring, delivered by Dr Maurice Olsen, at [facility], [place], [place]. No complications H/O eye surgery (~1998) left eye History of tonsillectomy and adenoidectomy Family History Father Hyperlipidemia Hypertension Denies family history of Diabetes Heart disease Family history of thyroid problem Stroke Social History Smoking and tobacco status: never smoked Substance/Drug Use: never Additional social history: - Tobacco use: Denies Alcohol use: Denies Drug use: Denies Physical Exam Const: COMMON NORMALS: no acute distress and patient oriented x3 HENMT: COMMON NORMALS: normocephalic and atraumatic HEAD & SCALP: normocephalic and atraumatic Eye: COMMON NORMALS: conjunctivae normal CONJUNCTIVA: Yes conjunctivae normal Neck/C-Spine: COMMON NORMALS: supple Chest: COMMONS NORMALS: normal inspection of the chest Resp: COMMON NORMALS: normal respiratory effort Cardio: COMMON NORMALS: regular rate RATE: regular rate GI: INSPECTION: Yes normal to inspection Extremity: COMMON NORMALS: full ROM Neuro: COMMON NORMALS: patient oriented x3 Psych: COMMON NORMALS: mental status grossly normal Skin: NARRATIVE SKIN EXAM: Sunburn to bilateral lower legs Course Vital Signs: Vital signs: Vital Signs Temperature 98.4 F 05/25/23 16:59 Pulse Rate 95 05/25/23 16:59 Respiratory Rate 14 05/25/23 16:59 Blood Pressure 153/100 05/25/23 16:59 Pulse Oximetry 97 05/25/23 16:59 Oxygen Delivery Me thod Room Air 05/25/23 16:59 MDM - General Adult Medical Decision Making Patient presents here with a sunburn to her lower extremities she is well- appearing here did give patient pain meds we will prescribe her Naprosyn and Zof ran she is to follow-up with her PCP and return if worsening Discharge Plan Discharge Patient Disposition: Home Clinical Impression: Sunburn Condition: Stable Prescriptions: New ondansetron 4 mg tablet,disintegrating 4 mg PO Q6H PRN (Reason: nausea and vomiting) Qty: 14 0RF Naprosyn 500 mg tablet 500 mg PO BID PRN (Reason: pain) Qty: 20 0RF No Action rizatriptan [Maxalt] 10 mg tablet See Rx Instructions PO .COMPLEX Qty: 10 0RF Rx Instructions: take 1 tab at onset of headache; if no relief may repeat 1 tab after at least 2 hrs; max = 3 tabs/24 hr PO prenat.vits,maya,[id number] Tablet 1 tab PO DAILY paroxetine HCl [Paxil] 10 mg tablet 10 mg PO DAILY 30 Days Qty: 30 0RF lisinopril 5 mg tablet 5 mg PO DAILY 30 Days Qty: 30 0RF Flovent HFA 110 mcg/actuation HFA aerosol inhaler 1 puff inhalation Q12H Qty: 12 2RF omeprazole 40 mg capsule,delayed release(DR/EC) 40 mg PO DAILY 30 Days Qty: 30 0RF pantoprazole [Protonix] 40 mg tablet,delayed release (DR/EC) 40 mg PO DAILY Qty: 30 0RF hydroxyzine HCl 25 mg tablet 25 mg PO TID PRN (Reason: anxiety) Qty: 90 0RF Victoza 3-Mani 0.6 mg/0.1 mL (18 mg/3 mL) pen injector See Rx Instructions SUBCUT .COMPLEX Qty: 9 0RF Rx Instructions: inject 0.6mg subcutaneously once daily x 7 days; then 1.2mg daily, then 1.8mg daily then 2.4 (DME) pen needle, diabetic [1st Tier Unifine Pentips] 32 gauge x needle See Rx Instructions .Route Qty: 100 1RF Rx Instructions: As directed topiramate [Topamax] 50 mg tablet 50 mg PO BID Qty: 60 2RF loratadine [Claritin] 10 mg tablet 10 mg PO DAILY Qty: 30 2RF simvastatin 40 mg tablet 40 mg PO .QHS 30 Days Qty: 30 3RF oxycodone 5 mg tablet 5 mg PO Q4H PRN (Reason: pain) Qty: 10 0RF Discharge Orders: Discharge ED (Routine); Ordered 05/25/23 Ordered By: Vannessa Coleman Referrals: Elsa Parker NP [Primary Care Provider] - Discharge Diet: Advance as tolerated Discharge Activity: Resume usual activity Patient Instructions: Sunburn (ED) Coding Level of Care Code ED Ice Cream Server for Conrado Loja
[2023-05-25] MEDS: ondansetron 4 MG Tablet PO (18:48)
[2023-05-25] MEDS: HYDROcodone-acetaminophen 7.5-325 mg Tablet 1 TAB PO (18:48)
[2023-05-25 19:05] VITALS: BP 147/85; PULSE 97; O2SAT 98
== END 2023-05-25 19:06 | disposition home or self-care (01) ==
PROVIDERS: Emergency Provider Emergency Medicine; PCP Nurse Practitioner Family
DX: L55.9 Sunburn, unspecified (principal)
CPT/HCPCS: 99283; Q0162

== ENCOUNTER → 2024-03-10 10:17 | Outpatient (BNVA) | payer OTHER, SELFPAY | PROVIDERS: PCP Nurse Practitioner Family; Visit Provider Nurse Practitioner Family | DX: E66.9 Obesity, unspecified (principal); F41.9 Anxiety disorder, unspecified; E66.01 Morbid (severe) obesity due to excess calories; Z68.43 Body mass index [BMI] 50.0-59.9, adult | CPT/HCPCS: 80053; 80061; 84443; 85025 ==

== ENCOUNTER → 2024-05-30 17:00 | Outpatient (BNVA) | payer OTHER, SELFPAY | PROVIDERS: PCP Nurse Practitioner Family; Visit Provider Family Medicine | DX: M79.672 Pain in left foot (principal) | CPT/HCPCS: 73630 ==

== ENCOUNTER 2024-08-25 21:51 | Emergency (ER) | payer BC, MEDICAID, SELFPAY ==
[2024-08-25 22:03] VITALS: BP 143/81; PULSE 76; RESP 18; TEMP 36.8; O2SAT 98; BMI 44.4
--- NOTE | 2024-08-25 22:49 | ED_ITS ---
HPI - Nausea/Vomiting/Diarrhea 2 General: Chief complaint: Nausea/Vomiting/Diarrhea Stated complaint: Dehydrated\Headache\Vomiting 12 Weeks Preg Time Seen by Provider: 08/25/24 22:48 History of Present Illness: 28-year-old female comes in today for co mplaints of headache along with nausea and vomiting since last night. Patient reports that she is approximately 12 weeks . Patient appears mild discomfort. Respirations are even skin is warm and dry. Related Data Previous Rx's Medication Instructions Recorded hydroxyzine HCl 25 mg tablet 25 mg PO TID PRN anxiety #90 tabs 03/10/24 diclofenac sodium 1 % topical gel 4 g topical QID #100 grams 05/30/24 (Voltaren Arthritis Pain) clotrimazole-betamethasone 1 1 applic topical BID 4 weeks #45 06/13/24 %-0.05 % topical cream grams naproxen 500 mg tablet 500 mg PO BID PRN pain #60 tabs 06/13/24 ondansetron 4 mg disintegrating 4 mg PO Q6H PRN nausea and 06/13/24 tablet vomiting #90 tabs rizatriptan 10 mg disintegrating See Rx Instructions PO .COMPLEX 06/15/24 tablet (Maxalt-BASIC SCIENCES PROFESSOR) #10 tabs cephalexin 500 mg capsule 500 mg PO BID 5 days #10 caps 08/26/24 Allergies Allergy/AdvReac Type Severity Reaction Status Date / Time morphine Allergy ADR-Itching Verified 05/30/24 16:46 Review of Systems 2 General: Reports: 10 or more systems reviewed and unremarkable except in HPI and below PFSH ED 2 PFSH: Medical History History of gestational hypertension History of pre-eclampsia Labial fusion Surgical History H/O eye surgery (~1998) left eye H/O section (~2013) 1----06/10/2014, male(Hebert), 6 lbs 7.5 ozs, 38 wks, epidural, c- section delivery unreasurring monitoring, delivered by Dr Maurice Olsen, at [facility], [place], [place]. No complications History of tonsillectomy and adenoidectomy Family History Father Hyperlipidemia Hypertension Denies family history of Diabetes Heart disease Family history of thyroid problem Stroke Social History Smoking and tobacco/nicotine status: unknown if used tobacco/nicotine Substance/Drug Use: never Additional social history: - Tobacco use: Denies Alcohol use: Denies Drug use: Denies Physical Exam 2 Const: COMMON NORMALS: alert HENMT: COMMON NORMALS: normocephalic HEAD & SCALP: normocephalic Neck/C-Spine: COMMON NORMALS: full ROM Resp: COMMON NORMALS: normal respiratory effort and clear to auscultation bilaterally AUSCULTATION: clear to auscultation bilaterally Cardio: COMMON NORMALS: regular rate RATE: regular rate Extremity: COMMON NORMALS: normal to inspection Neuro: SENSORIUM/ORIENTATION: Yes alert Skin: COMMON NORMALS: turgor normal GENERAL SKIN EXAM: turgor normal Course 2 Vital Signs: Vital signs: Vital Signs Temperature 98.3 F 08/25/24 22:03 Pulse Rate 74 08/26/24 00:00 Respiratory Rate 21 H 08/26/24 00:00 Blood Pressure 117/65 08/26/24 00:00 Pulse Oximetry 99 08/26/24 00:00 Oxygen Delivery Me thod Room Air 08/25/24 22:03 MDM - Nausea/Vomiting/Diarrhea Medical Decision Making 28-year-old female comes in today for complaints of headache with nausea vomiting starting last night. Patient is approximately 12 weeks . Patient reports some episodes but her headache is worse today which prompted her to come to the ER. Patient believes that she might be dehydrated. Vital signs notes some mild elevation of blood pressure at 143/81. Differential diagnosis includes but not limited to hypertension during , hyperemesis gravidarum, UTI, electrolyte imbalance, preeclampsia. CBC CMP was unremarkable. Urinalysis had a large amount of white blood cells. Patient was treated for headache with Reglan and diphenhydramine with good results. Patient was also given 1 L of IV fluids for possible dehydration. Patient was also given ceftriaxone 1 g for a urinary tract infection as noted by urinalysis. Patient reports understanding of care plan need for follow-up or return to the ER. Lab Data 08/25/24 23:03 08/25/24 23:03 Laboratory Results WBC 11.59 10^3/uL (3.29-11.43) H 08/25/24 23:03 RBC 4.61 10^6/uL (3.85-5.65) 08/25/24 23:03 Hgb 13.80 g/dL (11.27-16.99) 08/25/24 23:03 Hct 39.9 % (36-47) 08/25/24 23:03 MCV 86.6 fl (85-98) 08/25/24 23:03 MCH 29.9 pg (27-33) 08/25/24 23:03 MCHC 34.6 g/dL (30-55) 08/25/24 23:03 RDW 12.1 % (12.1-15.1) 08/25/24 23:03 Plt Count 247 10^3/cmm (157-399) 08/25/24 23:03 MPV 11.3 fL (7.4-10.4) H 08/25/24 23:03 Neut % (Auto) 60.4 % 08/25/24 23:03 Lymph % (Auto) 31.1 % 08/25/24 23:03 [place] % (Auto) 5.5 % 08/25/24 23:03 Eos % (Auto) 2.1 % 08/25/24 23:03 Baso % (Auto) 0.6 % 08/25/24 23:03 Neut # (Auto) 7.01 10^3/uL (1.8-7.7) 08/25/24 23:03 Lymph # (Auto) 3.6 10^3/uL (0.8-4.8) 08/25/24 23:03 [place] # (Auto) 0.6 10^3/uL (0.2-0.9) 08/25/24 23:03 Eos # (Auto) 0.2 10^3/uL (0.0-0.8) 08/25/24 23:03 Baso # (Auto) 0.1 10^3/uL (0.0-0.1) 08/25/24 23:03 Nucleated RBC % (auto) 0 % 08/25/24 23:03 Nucleated RBCs # 0.0 /100WBC 08/25/24 23:03 Sodium 135 mmol/L (136-145) L 08/25/24 23:03 Potassium 3.5 mmol/L (3.5-5.1) 08/25/24 23:03 Chloride 102 mmol/L (98-107) 08/25/24 23:03 Carbon Dioxide 20 mmol/L (22-29) L 08/25/24 23:03 Anion Gap 16.5 (5-19) 08/25/24 23:03 BUN 6 mg/dL (6-20) 08/25/24 23:03 Creatinine 0.4 mg/dL (0.5-0.9) L 08/25/24 23:03 GFR Calculation 187.4 mL/min (90-130) H 08/25/24 23:03 Glucose 90 mg/dL (65-115) 08/25/24 23:03 Calculated Osmolality 277 mOsm/kg (285-295) L 08/25/24 23:03 Calcium 9.2 mg/dL (8.5-10.5) 08/25/24 23:03 Total Bilirubin 0.3 mg/dL (0.15-1.2) 08/25/24 23:03 AST 11 U/L (0-32) 08/25/24 23:03 ALT 9 U/L (0-33) 08/25/24 23:03 Alkaline Phosphatase 59 U/L (35-105) 08/25/24 23:03 Total Protein 6.9 g/dL (6.6-8.7) 08/25/24 23:03 Albumin 4.1 g/dL (3.5-5.2) 08/25/24 23:03 Globulin 2.8 g/dL (1.3-4.6) 08/25/24 23:03 HCG, Qual Cancelled 08/25/24 23:03 HCG, Qual Positive (Negative) H 08/25/24 23:03 Urine Color Yellow (Yellow) 08/25/24 23:03 Urine Appearance Cloudy (CLEAR) A 08/25/24 23:03 Urine pH 5.5 (5-7) 08/25/24 23:03 Ur Specific [place] 1.011 (1.005-1.030) 08/25/24 23:03 Urine Protein Negative (Negative) 08/25/24 23:03 Urine Glucose (UA) Negative (Normal) 08/25/24 23:03 Urine Ketones Trace (Negative) 08/25/24 23:03 Urine Blood Negative (Negative) 08/25/24 23:03 Urine Nitrate Negative (Negative) 08/25/24 23:03 Urine Bilirubin Negative (Negative) 08/25/24 23:03 Urine Urobilinogen 1.0 mg/dL (Negative) 08/25/24 23:03 Ur Leukocyte Esterase 2+ (Negative) A 08/25/24 23:03 Urine RBC 3-5 /hpf (0-2) 08/25/24 23:03 Urine WBC 21-50 /hpf (0-5) H 08/25/24 23:03 Ur Squamous Epith Cells 11-20 /hpf (0-5) 08/25/24 23:03 Amorphous Sediment Not Reportable 08/25/24 23:03 Urine Bacteria 4+ /hpf (NONE) H 08/25/24 23:03 Hyaline Casts 27.37 /lpf 08/25/24 23:03 No radiology studies performed this visit Discharge Plan Discharge Patient Disposition: Home Clinical Impression: UTI (urinary tract infection) during Qualifiers: Trimester: first trimester Qualified Code(s): O23.41 - Unspecified infection of urinary tract in , first trimester Condition: Stable Prescriptions: New cephalexin 500 mg capsule 500 mg PO BID 5 Days Qty: 10 0RF No Action naproxen 500 mg tablet 500 mg PO BID PRN (Reason: pain) Qty: 60 0RF clotrimazole-betamethasone 1-0.05 % cream 1 applic topical BID 28 Days Qty: 45 3RF ondansetron 4 mg tablet,disintegrating 4 mg PO Q6H PRN (Reason: nausea and vomiting) Qty: 90 0RF rizatriptan [Maxalt-BASIC SCIENCES PROFESSOR] 10 mg tablet,disintegrating See Rx Instructions PO .COMPLEX Qty: 10 0RF Rx Instructions: take 1 tab at onset of headache; if no relief may repeat 1 tab after at least 2 hrs; max = 3 tabs/24 hr PO hydroxyzine HCl 25 mg tablet 25 mg PO TID PRN (Reason: anxiety) Qty: 90 0RF diclofenac sodium [Voltaren Arthritis Pain] 1 % gel 4 g topical QID Qty: 100 0RF Rx Instructions: apply to single knee, ankle, foot; for foot includes sole/toes/top of foot Discharge Orders: Discharge ED (Routine); Ordered 08/26/24 Ordered By: Antelmo Morris Referrals: Raf Lin MD [Primary Care Provider] - Discharge Diet: Usual diet Discharge Activity: Increase activity as tolerated Patient Instructions: Urinary Tract Infection in (ED) Activity Restrictions/Additional Instructions: Drink plenty water and fluids. Take medications as directed for urinary tract infection. Follow-up with primary care or FISCAL MANAGER for further instructions. Coding Level of Care Code ED Sample Shoe Inspector And Reworker for Conrado Loja
[2024-08-25] MEDS: diphenhydrAMINE 50 mg/mL SDV 1mL 12.5 MG IVP (23:11)
[2024-08-25] MEDS: metoclopramide 5 mg/mL SDV 2 mL 10 MG IVP (23:12)
[2024-08-25 23:14] LABS: Basophils # 0.1 10^3/uL (0.0-0.1); Basophils % 0.6 %; Eosinophils # 0.2 10^3/uL (0.0-0.8); Eosinophils % 2.1 %; Hematocrit 39.9 % (36-47); Lymphocytes # 3.6 10^3/uL (0.8-4.8); Lymphocytes % 31.1 %; Mean Corpuscular HGB Conc 34.6 g/dL (30-55); Mean Corpuscular Hemoglobin 29.9 pg (27-33); Mean Corpuscular Volume 86.6 fl (85-98); Mean Platelet Volume 11.3 fL (7.4-10.4); Monocytes # 0.6 10^3/uL (0.2-0.9); Monocytes % 5.5 %; Neutrophils # 7.01 10^3/uL (1.8-7.7); Neutrophils % 60.4 %; Nucleated Red Blood Cells % 0 %; Platelet Count 247 10^3/cmm (157-399); Red Blood Count 4.61 10^6/uL (3.85-5.65); Red Cell Distribution Width 12.1 % (12.1-15.1); White Blood Count 11.59 10^3/uL (3.29-11.43)
[2024-08-25] MEDS: lactated ringers 1,000 ML 999 ML IV (23:14)
[2024-08-25 23:19] VITALS: BP 151/96; PULSE 79; O2SAT 98
[2024-08-25 23:31] LABS: Bilirubin Urine Negative (Negative); Blood Urine Negative (Negative); Glucose Urine UA Negative (Normal); Ketones Urine Trace (Negative); Leukocyte Esterase Urine 2+ (Negative); Nitrate Urine Negative (Negative); Protein Urine Negative (Negative); Specific Gravity, Urine 1.011 (1.005-1.030); Urine Appearance Cloudy (CLEAR); Urine Color Yellow (Yellow); pH Urine 5.5 (5-7)
[2024-08-25 23:33] LABS: Add Urine Microscopic? YES; Bacteria Urine 4+ /hpf; Hyaline Casts Urine 27.37 /lpf; WBC Urine 21-50 /hpf (0-5)
[2024-08-25 23:35] LABS: Alanine Aminotransferase 9 U/L (0-33); Albumin Level 4.1 g/dL (3.5-5.2); Alkaline Phosphatase 59 U/L (35-105); Anion Gap 16.5 (5-19); Aspartate Amino Transferase 11 U/L (0-32); Blood Urea Nitrogen 6 mg/dL (6-20); Calcium 9.2 mg/dL (8.5-10.5); Carbon Dioxide 20 mmol/L (22-29); Chloride 102 mmol/L (98-107); Creatinine Clr Calc Pharmacy 231.5346; Globulin 2.8 g/dL (1.3-4.6); Glomerular Filtration Rate 187.4 mL/min (90-130); Glucose 90 mg/dL (65-115); Osmolality Calculated 277 mOsm/kg (285-295); Potassium 3.5 mmol/L (3.5-5.1); Sodium 135 mmol/L (136-145); Total Bilirubin 0.3 mg/dL (0.15-1.2); Total Protein 6.9 g/dL (6.6-8.7)
[2024-08-25 23:50] LABS: HCG Qualitative Urine. Positive (Negative)
[2024-08-26] VITALS: BP 117/65; PULSE 74; RESP 21; O2SAT 99
[2024-08-26] MEDS: cefTRIAXone 1,000 mg SDV 1000 MG IVP (00:31)
[2024-08-26 00:36] VITALS: BP 122/70; PULSE 72; RESP 18; O2SAT 98
[2024-08-26 00:49] VITALS: BP 123/75; PULSE 74; O2SAT 99
== END 2024-08-26 00:45 | disposition home or self-care (01) ==
PROVIDERS: Emergency Provider Nurse Practitioner Family; PCP Family Medicine
DX: O23.41 Unspecified infection of urinary tract in pregnancy, first trimester (principal); Z3A.12 12 weeks gestation of pregnancy
CPT/HCPCS: 80053; 81001; 81025; 85025; 96361; 96374; 96375; 99284; J0696; J1200; J2765; J7120

== ENCOUNTER 2024-10-22 18:29 | Outpatient (CLI) | payer BC, MEDICAID, SELFPAY ==
[2024-10-22] VITALS (7 sets, daily range): BP systolic 121–141; BP diastolic 65–76; PULSE 83–95; RESP 16–17; TEMP 36.9; O2SAT 100
[2024-10-22 20:05] LABS: Nitrazine Paper, PH Negative
== END 2024-10-22 20:24 | disposition home or self-care (01) ==
LOC: OPOB 18:30 → OBGYN 18:31
PROVIDERS: PCP Family Medicine; Visit Provider Family Medicine
DX: O26.899 Other specified pregnancy related conditions, unspecified trimester (principal); Z3A.00 Weeks of gestation of pregnancy not specified; N89.8 Other specified noninflammatory disorders of vagina
CPT/HCPCS: 83986; 87210; 99211

== ENCOUNTER 2024-11-29 09:51 | Outpatient (CLI) | payer BC, MEDICAID, SELFPAY ==
[2024-11-29] VITALS (10 sets, daily range): BP systolic 129–150; BP diastolic 57–71; PULSE 102–112; TEMP 36.7; O2SAT 98; BMI 51.2
[2024-11-29 11:06] LABS: Basophils % 0.3 %; Eosinophils % 0.3 %; Hematocrit 33.1 % (36-47); Lymphocytes # 0.5 10^3/uL (0.8-4.8); Lymphocytes % 6.9 %; Mean Corpuscular HGB Conc 34.1 g/dL (30-55); Mean Corpuscular Hemoglobin 29.4 pg (27-33); Mean Corpuscular Volume 86.2 fl (85-98); Monocytes # 0.6 10^3/uL (0.2-0.9); Monocytes % 8.2 %; Neutrophils # 6.48 10^3/uL (1.8-7.7); Neutrophils % 83.8 %; Nucleated Red Blood Cells % 0 %; Platelet Count 222 10^3/cmm (157-399); Red Blood Count 3.84 10^6/uL (3.85-5.65); Red Cell Distribution Width 12.9 % (12.1-15.1); White Blood Count 7.72 10^3/uL (3.29-11.43)
[2024-11-29 11:09] LABS: Bilirubin Urine Negative (Negative); Blood Urine Negative (Negative); Glucose Urine UA Negative (Normal); Ketones Urine 2+ (Negative); Leukocyte Esterase Urine Negative (Negative); Nitrate Urine Negative (Negative); Protein Urine Negative (Negative); Specific Gravity, Urine 1.014 (1.005-1.030); Urine Appearance Clear (CLEAR); Urine Color Yellow (Yellow); Urobilinogen Urine 0.2 mg/dL (Negative); pH Urine 5.5 (5-7)
[2024-11-29 11:13] LABS: Add Urine Microscopic? YES; Bacteria Urine None Seen /hpf; Hyaline Casts Urine 2.05 /lpf; RBC Urine 0-2 /hpf (0-2); Squamous Epithelial Cell Urine 0-5 /hpf (0-5); WBC Urine 0-5 /hpf (0-5)
[2024-11-29] MEDS: ondansetron 2 mg/ML SDV 2 mL 8 MG IVP (11:45)
[2024-11-29] MEDS: acetaminophen 500 mg Tablet 1000 MG PO (11:45)
== END 2024-11-29 13:08 | disposition home or self-care (01) ==
LOC: OPOB 09:52 → OBGYN 09:52
PROVIDERS: PCP Family Medicine; Visit Provider Family Medicine
DX: O21.9 Vomiting of pregnancy, unspecified (principal); Z3A.00 Weeks of gestation of pregnancy not specified
CPT/HCPCS: 81001; 85025; J2405

== ENCOUNTER 2025-01-28 15:50 | Outpatient (CLI) | payer BC, MEDICAID, SELFPAY ==
[2025-01-28 15:50] VITALS: RESP 16; BMI 52.1
[2025-01-28 16:06] VITALS: BP 130/76; PULSE 90
[2025-01-28 16:26] VITALS: BP 135/75; PULSE 82
== END 2025-01-28 16:40 | disposition home or self-care (01) ==
LOC: OPOB 15:53 → OBGYN 15:53
PROVIDERS: PCP Family Medicine; Visit Provider Family Medicine
DX: O26.899 Other specified pregnancy related conditions, unspecified trimester (principal); Z3A.00 Weeks of gestation of pregnancy not specified; R10.9 Unspecified abdominal pain
CPT/HCPCS: 59025; 99211

== ENCOUNTER 2025-02-02 15:00 | Outpatient (CLI) | payer BC, MEDICAID, SELFPAY ==
[2025-02-02 14:55] VITALS: BMI 52.0
[2025-02-02 15:07] VITALS: BP 134/67; PULSE 88; TEMP 35
[2025-02-02 15:22] VITALS: BP 125/58; PULSE 82
[2025-02-02 15:37] VITALS: BP 122/58; PULSE 81
[2025-02-02] MEDS: acetaminophen 500 mg Tablet 1000 MG PO (16:11)
== END 2025-02-02 16:12 | disposition home or self-care (01) ==
LOC: OPOB 15:00 → OBGYN 15:00
PROVIDERS: PCP Family Medicine; Visit Provider Family Medicine
DX: O24.419 Gestational diabetes mellitus in pregnancy, unspecified control (principal); Z3A.00 Weeks of gestation of pregnancy not specified
CPT/HCPCS: 59025; 99211

== ENCOUNTER 2025-02-09 09:20 | Outpatient (CLI) | payer BC, MEDICAID, SELFPAY ==
[2025-02-09] VITALS (11 sets, daily range): BP systolic 121–176; BP diastolic 70–95; PULSE 66–90; BMI 52.0
[2025-02-09 11:02] LABS: Basophils % 0.4 %; Eosinophils # 0.2 10^3/uL (0.0-0.8); Eosinophils % 2.3 %; Hematocrit 33.9 % (36-47); Lymphocytes # 2.2 10^3/uL (0.8-4.8); Lymphocytes % 26.9 %; Mean Corpuscular HGB Conc 33.6 g/dL (30-55); Mean Corpuscular Hemoglobin 28.7 pg (27-33); Mean Corpuscular Volume 85.4 fl (85-98); Mean Platelet Volume 11.4 fL (7.4-10.4); Monocytes # 0.5 10^3/uL (0.2-0.9); Monocytes % 5.9 %; Neutrophils # 5.34 10^3/uL (1.8-7.7); Neutrophils % 64.1 %; Nucleated Red Blood Cells % 0 %; Platelet Count 218 10^3/cmm (157-399); Red Blood Count 3.97 10^6/uL (3.85-5.65); Red Cell Distribution Width 13.2 % (12.1-15.1); White Blood Count 8.32 10^3/uL (3.29-11.43)
[2025-02-09 11:05] LABS: Bilirubin Urine Negative (Negative); Blood Urine Negative (Negative); Glucose Urine UA Negative (Normal); Ketones Urine Negative (Negative); Leukocyte Esterase Urine Negative (Negative); Nitrate Urine Negative (Negative); Protein Urine Negative (Negative); Specific Gravity, Urine 1.004 (1.005-1.030); Urine Appearance Clear (CLEAR); Urine Color Yellow (Yellow); Urobilinogen Urine 0.2 mg/dL (Negative); pH Urine 6.5 (5-7)
[2025-02-09 11:10] LABS: Add Urine Microscopic? YES; Bacteria Urine 1+ /hpf; Hyaline Casts Urine 0-4 /lpf; RBC Urine 0-2 /hpf (0-2); Squamous Epithelial Cell Urine 0-5 /hpf (0-5); WBC Urine 0-5 /hpf (0-5)
[2025-02-09 11:18] LABS: Alanine Aminotransferase 8 U/L (0-33); Albumin Level 3.4 g/dL (3.5-5.2); Alkaline Phosphatase 120 U/L (35-105); Aspartate Amino Transferase 13 U/L (0-32); Blood Urea Nitrogen 5 mg/dL (6-20); Carbon Dioxide 20 mmol/L (22-29); Chloride 107 mmol/L (98-107); Creatinine Clr Calc Pharmacy 337.4262; Globulin 2.6 g/dL (1.3-4.6); Glomerular Filtration Rate 259.5 mL/min (90-130); Glucose 91 mg/dL (65-115); Osmolality Calculated 283 mOsm/kg (285-295); Sodium 138 mmol/L (136-145); Total Bilirubin 0.2 mg/dL (0.15-1.2); Uric Acid 4.1 mg/dL (2.4-5.7)
[2025-02-09 11:19] LABS: UA Slide Review UA Slide Review Perf
[2025-02-09 11:21] LABS: Add Urine Culture? No
[2025-02-09 11:24] LABS: Urine Creatinine 20 mg/dL (28-217); Urine Protein Random 4 mg/dL
[2025-02-09 11:26] LABS: Anion Gap 14.9 (5-19); Potassium 3.9 mmol/L (3.5-5.1)
== END 2025-02-09 13:00 | disposition home or self-care (01) ==
LOC: OPOB 09:21 → OBGYN 09:21
PROVIDERS: PCP Family Medicine; Visit Provider Family Medicine
DX: O24.419 Gestational diabetes mellitus in pregnancy, unspecified control (principal); Z3A.00 Weeks of gestation of pregnancy not specified
CPT/HCPCS: 36415; 59025; 80053; 81001; 82570; 84156; 84550; 85025; 99211

== ENCOUNTER 2025-02-11 15:16 | Outpatient (CLI) | payer BC, MEDICAID, SELFPAY ==
[2025-02-11] VITALS (11 sets, daily range): BP systolic 115–153; BP diastolic 56–86; PULSE 87–109; RESP 16; TEMP 36.6; O2SAT 98; BMI 51.3
[2025-02-11] MEDS: HYDROcodone-acetaminophen 5-325 mg Tablet 1 TAB PO (16:43)
[2025-02-11 18:08] LABS: Bilirubin Urine 1+ (Negative); Blood Urine Negative (Negative); Glucose Urine UA Negative (Normal); Ketones Urine 1+ (Negative); Leukocyte Esterase Urine Negative (Negative); Nitrate Urine Negative (Negative); Protein Urine 2+ (Negative); Specific Gravity, Urine 1.026 (1.005-1.030); Urine Appearance Turbid (CLEAR)
[2025-02-11 18:11] LABS: Bacteria Urine 4+ /hpf; Hyaline Casts Urine 29.78 /lpf; Universal Test for UA Present (0)
[2025-02-11 18:24] LABS: Add Urine Culture? No; Amorphous Sediment Urine 4+ /hpf; Urine Color Orange (Yellow)
--- NOTE | 2025-02-11 19:03 | PC.NURSE ---
Prescription called to [facility]. Voicemail left.
[2025-02-11] MEDS: cefTRIAXone 1,000 MG, lidocaine 1% 2.1 ML in SYRINGE 1 EACH 1 MG IM (19:10)
== END 2025-02-11 19:12 | disposition home or self-care (01) ==
LOC: OPOB 15:17 → OBGYN 15:18
PROVIDERS: PCP Family Medicine; Visit Provider Family Medicine
DX: O26.899 Other specified pregnancy related conditions, unspecified trimester (principal); R10.9 Unspecified abdominal pain; Z3A.00 Weeks of gestation of pregnancy not specified
CPT/HCPCS: 59025; 81001; 99211; J0696; J9999

== ENCOUNTER 2025-02-16 09:20 | Outpatient (CLI) | payer BC, MEDICAID, SELFPAY ==
[2025-02-16 09:39] VITALS: BP 137/96; PULSE 96
[2025-02-16 09:59] VITALS: BP 142/65; PULSE 85
[2025-02-16 10:19] VITALS: BP 137/75; PULSE 79
== END 2025-02-16 10:25 | disposition home or self-care (01) ==
LOC: OPOB 09:20 → OBGYN 09:21
PROVIDERS: PCP Family Medicine; Visit Provider Family Medicine
DX: O24.419 Gestational diabetes mellitus in pregnancy, unspecified control (principal); Z3A.00 Weeks of gestation of pregnancy not specified
CPT/HCPCS: 59025

== ENCOUNTER 2025-02-22 08:43 | Outpatient (CLI) | payer BC, MEDICAID, SELFPAY ==
[2025-02-22 08:58] VITALS: BP 113/68; PULSE 91
[2025-02-22 09:04] VITALS: BMI 53.1
[2025-02-22 09:19] VITALS: BP 133/83; PULSE 89
== END 2025-02-22 09:27 | disposition home or self-care (01) ==
LOC: OPOB 08:44 → OBGYN 08:44
PROVIDERS: PCP Family Medicine; Visit Provider Family Medicine
DX: O24.419 Gestational diabetes mellitus in pregnancy, unspecified control (principal); Z3A.00 Weeks of gestation of pregnancy not specified
CPT/HCPCS: 59025

== ENCOUNTER 2025-02-28 05:03 | Inpatient (IN) | payer BC, MEDICAID, SELFPAY ==
--- NOTE | 2025-02-09 16:56 | P.ANESASSM_ITS ---
Pre-Anesthetic Assessment Height/Weight: Height 5 ft 1 in Preop Diagnosis: Planned Operation Date: 02/28/25 07:20 Proposed Procedures p Section Repeat With Tubal 86142, Z34.7,O24.419(Bilateral) - Raf Lin MD Was Beta Kanika taken within 24 hours: N/A Was Clonidine taken within 24 hours: N/A Social No alcohol and No tobacco Exam alert, oriented x 3, clear to auscultation bilaterally and regular rate & rhythm Airway Submandibular: within normal limits Cervical ROM: within normal limits Mallampati: Class II Dentition: full Anesthetic Plan ASA status: 2 Anesthesia: Regional (specify below) Other: G2, P1 here for evaluation Patient had an epidural with preoperative without issues Gestational diabetes noted, diet controlled Will obtain labs prior to procedure METs greater than 4 Plan for routine with spinal anesthetic Medications/Allergies Home Medications ?Medication ?Instructions ?Recorded ?Confirmed ?Last Taken ?Type Prena1 Chew 1 100 ml PO 1XD 02/09/25 Unknown History ondansetron 4 mg disintegrating 4 mg PO Q6H PRN nausea 02/09/25 02/09/25 Unknown History tablet Allergies Allergy/AdvReac Type Severity Reaction Status Date / Time morphine Allergy ADR-Itching Verified 12/28/24 11:18 [facility] Anesthesia Medical History Labial fusion History of gestational hypertension History of pre-eclampsia Surgical History H/O eye surgery (~1998) left eye H/O section (~2013) 1----06/10/2014, male(Hebert), 6 lbs 7.5 ozs, 38 wks, epidural, c- section delivery unreasurring monitoring, delivered by Dr Maurice Olsen, at [facility], [place], [place]. No complications History of tonsillectomy and adenoidectomy Family History Father Hyperlipidemia Hypertension Denies family history of Diabetes Heart disease Family history of thyroid problem Stroke Social History Smoking and tobacco/nicotine status: unknown if used tobacco/nicotine Substance/Drug Use: never Additional social history: - Tobacco use: Denies Alcohol use: Denies Drug use: Denies Data Anesthesia Cardiac Studies: No Data to Display
[2025-02-28] VITALS (37 sets, daily range): BP systolic 105–160; BP diastolic 56–103; PULSE 64–101; RESP 17–18; TEMP 36.7–37.1; O2SAT 98–99; BMI 52.9
--- OUTSIDE RECORDS SUMMARY | 2025-02-28 05:07 | XMS_ITS | Patient Health Record ---
Author Organization [facility] Address [address] [place] [address] Care Team Providers Care Antiquer Name Role Phone Migration, Provider Primary Care Provider Danette spencer Reason For Referral No Information Medications Medication SIG (Take, Route, Frequency, Duration) Notes Start Date End Date Status Nortriptyline 25 MG Oral Capsule Nortriptyline 25 MG Oral Capsule 01/01/2017 Active Dicyclomine Hydrochloride 10 MG Oral Capsule [Bentyl] Dicyclomine Hydrochloride 10 MG Oral Capsule [Bentyl] 09/22/2016 Active Plan Of Treatment No Information
[2025-02-28 05:44] LABS: Basophils % 0.3 %; Eosinophils # 0.3 10^3/uL (0.0-0.8); Eosinophils % 3.1 %; Hematocrit 34.8 % (36-47); Lymphocytes # 2.8 10^3/uL (0.8-4.8); Lymphocytes % 31.5 %; Mean Corpuscular HGB Conc 33.6 g/dL (30-55); Mean Corpuscular Hemoglobin 28.7 pg (27-33); Mean Corpuscular Volume 85.3 fl (85-98); Mean Platelet Volume 11.8 fL (7.4-10.4); Monocytes # 0.8 10^3/uL (0.2-0.9); Monocytes % 8.4 %; Neutrophils # 5.03 10^3/uL (1.8-7.7); Neutrophils % 56.3 %; Nucleated Red Blood Cells % 0 %; Platelet Count 218 10^3/cmm (157-399); Red Blood Count 4.08 10^6/uL (3.85-5.65); Red Cell Distribution Width 13.4 % (12.1-15.1); White Blood Count 8.95 10^3/uL (3.29-11.43)
[2025-02-28] MEDS: sodium chloride 0.9% 1,000 ML 999 ML IV (06:08)
--- NOTE | 2025-02-28 06:26 | P.ANESUD_ITS ---
Pre-Anesthetic Update Pre-Anesthetic Assessment: Date of Surgery/Procedure: 02/28/25 Preop Candelaria gnosis: Planned Proposed Procedure: Operation Date: 02/28/25 07:20 Proposed Procedures p Section Repeat With Tubal 80016, Z34.7,O24.419(Bilateral) - Raf Lin MD Changes from Pre-Anesthetic Assessment: No changes since patient was seen in preoperative clinic. Labs this morning reviewed and acceptable for spinal. Patient is very nervous this morning. Will plan on routine with spinal. ASA 3 Last Intake: Intake Last Liquid Date 02/28/25 Last Liquid Time 23:25 Last Solid Date 02/28/25 Last Solid Time 19:30 Labs Last 48hrs: Short CBC 02/28/25 Range/Units 05:36 WBC 8.95 (3.29-11.43) 10^ 3/uL Hgb 11.70 (11.27-16.99) g/ dL Hct 34.8 L (36-47) % MCV 85.3 (85-98) fl Plt Count 218 (157-399) 10^3/c mm Neut % (Auto) 56.3 % Neut # (Auto) 5.03 (1.8-7.7) 10^3/u L Blood Bank 02/28/25 05:36 Blood Type A Positive Rho(D) Type Rh positive Antibody Screen Negative Vitals: Pulse Rate 97 02/28/25 06:19 Pulse Rhythm Regular 02/28/25 05:54 Pulse Strength 3+ Normal 02/28/25 05:54 Respiratory Rate 18 02/28/25 05:46 Respiratory Effort Spontaneous, Non- Labored 02/28/25 05:54 Respiratory Depth Normal 02/28/25 05:54 Respiratory Patter n Normal 02/28/25 05:54 Blood Pressure 132/73 02/28/25 06:19 Oxygen Delivery Me thod Room Air 02/28/25 05:54 Cardiac Studies: No Data to Display
[2025-02-28] MEDS: famotidine 20 mg/2 mL INJ IVP (06:44)
[2025-02-28] MEDS: metoclopramide 5 mg/mL SDV 2 mL 10 MG IVP (06:45)
--- NOTE | 2025-02-28 06:55 | PM.OBGYHP ---
Providers/Chief Complaint Admitting Physician: Raf Lin MD Primary Care Provider: Raf Lin MD Chief Complaint: Z34.7, O24.419 HPI SENIOR IT RECRUITER History of Present Illness Kerry Kline is a 29 year old 2 para 1-0-0-1 female at 38 weeks and 3 days with a previous section presenting for a repeat section. Her has been remarkable for having morbid obesity, well-controlled gestational diabetes, and intermittent elevated blood pressures not requiring medication. She is also expressed a desire to have a tubal ligation performed. We discussed the pros, cons and alternatives in depth earlier in her . She once again reiterated her desire to have a tubal ligation and had no further questions prior to surgery. Present Details : 2 Para: 1 Labs Rubella: Immune RPR: Negative GBS: Negative Review of Systems General: Reports: 10 or more systems reviewed and unremarkable except in HPI and below Const: Reports: fatigue; Denies: fever(s) Eyes: Denies: change in vision Card: Denies: chest pain Musc: Reports: back pain Álvaro/Lymph: Denies: easy bruising Medications/Allergies Home Medications ?Medication ?Instructions ?Recorded ?Confirmed ?Last Taken ?Type Prena1 Chew 1 100 ml PO 1XD 02/09/25 02/28/25 02/27/25 History Allergies Allergy/AdvReac Type Severity Reaction Status Date / Time morphine Allergy ADR-Itching Verified 02/22/25 09:16 PFSH SENIOR IT RECRUITER PFSH: Medical History Labial fusion History of gestational hypertension History of pre-eclampsia Surgical History H/O eye surgery (~1998) left eye H/O section (~2013) 1----06/10/2014, male(Hebert), 6 lbs 7.5 ozs, 38 wks, epidural, delivery unreasurring monitoring, delivered by Dr Mauirce Olsen, at [facility], [place], [place]. No complications History of tonsillectomy and adenoidectomy Family History Father Hyperlipidemia Hypertension Denies family history of Diabetes Heart disease Family history of thyroid problem Stroke Social History Smoking and tobacco/nicotine status: unknown if used tobacco/nicotine Substance/Drug Use: never Additional social history: - Tobacco use: Denies Alcohol use: Denies Drug use: Denies Personal Safety: Do you feel safe at home: Yes Victim of physical abuse: No Victim of emotional abuse: No Victim of sexual abuse: No History History History 2 Term 1 0 Miscarriages/Ectopic 0 Living Children 1 Vitals/I&O/Wt Last Vital Signs Pulse 96 02/28/25 06:49 Resp 18 02/28/25 05:46 BP 142/84 02/28/25 06:49 O2 Del Method Room Air 02/28/25 05:54 Weight last 48 hrs Weight 280 lb Physical Exam Const: COMMON NORMALS: patient oriented x3 and alert; negative for average body habitus (Morbidly obese) HENMT: COMMON NORMALS: moist oral mucous membranes HEAD & SCALP: normal to inspection Chest: COMMONS NORMALS: normal inspection of the chest Resp: COMMON NORMALS: clear to auscultation bilaterally AUSCULTATION: clear to auscultation bilaterally Cardio: COMMON NORMALS: regular rate and regular rhythm RATE: regular rate RHYTHM: regular rhythm GI: INSPECTION: Yes normal to inspection and Yes other (Gravid) Extremity: COMMON NORMALS: normal to inspection GENERAL: Yes edema (Trace) Neuro: COMMON NORMALS: patient oriented x3, moves all extremities and no sensory deficits noted SENSORIUM/ORIENTATION: Yes alert Psych: COMMON NORMALS: mental status grossly normal Skin: COMMON NORMALS: no rashes or lesions noted GENERAL SKIN EXAM: no rashes or lesions noted Data 02/28/25 20:01 Results Labs OB ([facility]): Blood Type A Positive 02/28/25 Antibody Screen Negative 02/28/25 Hct 27.2 % (36-47) L 02/28/25 Hgb 9.20 g/dL (11.27-16.99) L 02/28/25 Rho(D) Type Rh positive 02/28/25 Plt Count 160 10^3/cmm (157-399) 02/28/25 TSH 1.73 uIU/mL (0.27-4.20) 03/10/24 Uric Acid 4.1 mg/dL (2.4-5.7) 02/09/25 HCG, Qual Positive (Negative) H 08/25/24 A&P Assessment and plan (1) History of section: We will proceed with a repeat section as well as an intraoperative bilateral tube ligation (2) 38 weeks gestation of : (3) Gestational diabetes mellitus: She has been diet controlled. We will check her blood sugars 4 times daily postoperatively during her hospital stay. (4) Morbid obesity: (5) Sterilization consult: We discussed the risks of a tubal ligation including the risk of bleeding, infection, and a 1-200 chance of becoming again despite a successful tube ligation. PDMP PDMP Reviewed: Not Reviewed Attestations Medical Necessity Statement*: I anticipate routine section and postsurgical stay. Coding Level of Care Code Acute Code for Chg Fwd Diagnoses History of section Z98.891 38 weeks gestation of Z3A.38 Gestational diabetes mellitus O24.419 Morbid obesity E66.01 Sterilization consult Z30.09
[2025-02-28] MEDS: ceFAZolin 3,000 MG in sodium chloride 0.9% (plus) 100 ML 200 MG IV (07:05)
--- NOTE | 2025-02-28 09:05 | PM.OP ---
Operative Report Date of procedure: February 28, 2025 Pre-op diagnosis: 29-year-old 2 para 1-0-0-1 at 38 weeks estimated gestational age 2. Gestational diabetes 3. Morbid obesity 4. History of 5. Desires sterilization Post-op diagnosis: Same Procedure done: 1. Repeat low-transverse section 2. Intraoperative bilateral tubal ligation using a modified [place] technique. Specimens removed/disposition: 1. Female with a weight of 7 pounds 6 ounces and Apgars of 8 and 9 2. Placenta with a three-vessel cord delivered intact 3. Bilateral fallopian tube segments with the right segment being tagged Surgeon: Raf Lin MD Estimated blood loss (mL): 1,200 Procedure: The patient was brought back to the operating room where she was prepped and draped in usual sterile fashion. Her pannus was taped up prior to prepping and draping. Anesthesia was found to be adequate. A lower transverse skin incision was then made with a #10 blade. I then dissected down to the underlying subcutaneous tissue until arriving at the prerectal fascia. The fascia was then nicked with the scalpel bilaterally. The fascial incisions were then carried laterally with Mendez scissors. Attention was then turned to the superior aspect of the incision which was grasped with kochers and tented up away from the underlying rectus abdominis muscles. The muscles were then dissected away from the fascia manually, and later with Mendez scissors. Attention was then turned to the inferior aspect of the incision, and the fascia was dissected away from the underlying muscle in similar fashion. The rectus abdominis muscles were then spread manually. The peritoneum was entered manually. Excellent visualization of the uterus was noted. A lower transverse uterine incision was then made with a #10 blade. Upon arriving at the intrauterine cavity, the uterine incision was then extended manually. The was noted to be in vertex position. The baby was delivered without difficulty. After delivery of the head, the mouth and nose were suctioned at the site of the incision. There was no meconium. There was a nuchal cord x 1 which was easily reduced. The cord was cut and clamped. The baby was then handed to the waiting nurse. The placenta was removed intact. The uterus was externalized. The intrauterine cavity was cleansed of any remaining debris. The uterine incision was reapproximated in 2 layers. The first layer was performed with 0 Vicryl in a running locked stitch. The second layer was an imbricating stitch also using 0 Vicryl. Attention was then turned to the right fallopian tube which was ligated cut and cauterized in a modified Ankur technique with 0 chromic. Attention was then turned to the left fallopian tube which was also ligated and cauterized in similar fashion. The uterus was replaced into the abdomen. The peritoneum was then irrigated with warm saline. I reexamined the uterine incision and found it to be hemostatic. I reexamined the tube ligations and they were also noted to be intact and hemostatic. The rectus abdominis muscles were then reapproximated using 0 Vicryl in a running stitch. The fascia was then reapproximated using 0 Vicryl in running stitch. The subcutaneous tissue was also reapproximated using 0 Vicryl in a running stitch. The skin was reapproximated using 4-0 Vicryl in a running subcuticular stitch. Steri-Strips were placed. A sterile dressing was placed. All counts were correct x2. Both the mother and baby were in stable condition.
[2025-02-28] MEDS: ketorolac 30 mg/mL INJ IVP ×3 (09:49→21:21)
[2025-02-28] MEDS: dextrose 5%-lactated ringers 1,000 ML 125 ML IV (09:49)
[2025-02-28 11:51] LABS: Glucose Point of Care 109 mg/dL (70-110)
[2025-02-28] MEDS: ondansetron 2 mg/ML SDV 2 mL 4 MG IVP (12:53)
[2025-02-28 16:19] LABS: Glucose Point of Care 116 mg/dL (70-110)
[2025-02-28 20:14] LABS: Hematocrit 27.2 % (36-47); Mean Corpuscular HGB Conc 33.8 g/dL (30-55); Mean Corpuscular Hemoglobin 29.1 pg (27-33); Mean Corpuscular Volume 86.1 fl (85-98); Mean Platelet Volume 11.4 fL (7.4-10.4); Platelet Count 160 10^3/cmm (157-399); Red Blood Count 3.16 10^6/uL (3.85-5.65); Red Cell Distribution Width 13.3 % (12.1-15.1); White Blood Count 8.62 10^3/uL (3.29-11.43)
[2025-02-28] MEDS: docusate sodium 100 mg Capsule PO (20:47)
[2025-02-28] MEDS: diphenhydrAMINE 50 mg/mL SDV 1mL 25 MG IVP (20:47)
[2025-03-01] MEDS: HYDROcodone-acetaminophen 5-325 mg Tablet PO (01:22)
[2025-03-01 04:30] VITALS: RESP 16; TEMP 36.8
[2025-03-01 04:31] VITALS: BP 129/75; PULSE 82
--- NOTE | 2025-03-01 07:33 | P.DS_ITS ---
Discharge Providers [employer] Date of Admission: 02/28/25 05:03 Date of Discharge: 03/01/25 Attending Provider at Admission: Raf Lin MD Attending Provider at Discharge: Raf Lin MD Primary Care Provider: Raf Lin MD Diagnoses at Discharge Discharge Diagnosis (1) History of section: Status: Acute (2) 38 weeks gestation of : Status: Acute (3) Gestational diabetes mellitus: Status: Acute (4) Morbid obesity: Status: Acute (5) Sterilization consult: Status: Acute Reason for Visit Reason for Visit: Z34.7, O24.419 Hospital Course Hospital Course The patient arrived to the hospital on the day of her planned section and bilateral tubal ligation. The and tubal ligation went well. There were no concerns. Her course was also unremarkable. Her bleeding was within normal limits. Her pain was well-controlled. She passed gas on the day of surgery. She is ambulating and active. This morning she still feels good. Her pain has increased some as expected. She has tolerated her diet well. Information Peripartum Data: Infant Delivery Method: Physical Exam Narrative: She is in no acute distress Lungs are clear auscultation bilaterally Her heart has a regular rate and rhythm Her fundus is below the umbilicus and firm Her dressing is clean, dry and intact Her extremities have trace edema Urinary Catheter Management: Carbone: Cath Placed During This Visit: yes, but has since been removed by the nurse Reason for Continuing Indwelling Catheter: Decision to DC Catheter Urinary Catheter Date of Insertion: 02/28/25 Urinary Catheter Time of Insertion: 07:15 Date Urinary Catheter Removed: 02/28/25 Time Urinary Catheter Discontinued: 20:46 History History History 2 Term 1 0 Miscarriages/Ectopic 0 Living Children 1 Discharge Data Studies Completed and Pending Pending at discharge Category Date Time Status Pathology: Surgical [PTH] Routine Pth 02/28/25 10:26 Received Laboratory Results WBC 8.62 10^3/uL (3.29-11.43) 02/28/25 20:01 RBC 3.16 10^6/uL (3.85-5.65) L 02/28/25 20:01 Hgb 9.20 g/dL (11.27-16.99) L 02/28/25 20:01 Hct 27.2 % (36-47) L 02/28/25 20:01 MCV 86.1 fl (85-98) 02/28/25 20:01 MCH 29.1 pg (27-33) 02/28/25 20:01 MCHC 33.8 g/dL (30-55) 02/28/25 20:01 RDW 13.3 % (12.1-15.1) 02/28/25 20:01 Plt Count 160 10^3/cmm (157-399) 02/28/25 20:01 MPV 11.4 fL (7.4-10.4) H 02/28/25 20:01 Neut % (Auto) 56.3 % 02/28/25 05:36 Lymph % (Auto) 31.5 % 02/28/25 05:36 [place] % (Auto) 8.4 % 02/28/25 05:36 Eos % (Auto) 3.1 % 02/28/25 05:36 Baso % (Auto) 0.3 % 02/28/25 05:36 Neut # (Auto) 5.03 10^3/uL (1.8-7.7) 02/28/25 05:36 Lymph # (Auto) 2.8 10^3/uL (0.8-4.8) 02/28/25 05:36 [place] # (Auto) 0.8 10^3/uL (0.2-0.9) 02/28/25 05:36 Eos # (Auto) 0.3 10^3/uL (0.0-0.8) 02/28/25 05:36 Baso # (Auto) 0.0 10^3/uL (0.0-0.1) 02/28/25 05:36 Nucleated RBC % (auto) 0 % 02/28/25 05:36 Nucleated RBCs # 0.0 /100WBC 02/28/25 05:36 POC Glucose 116 mg/dL (70-110) H 02/28/25 16:11 Blood Type A Positive 02/28/25 05:36 Rho(D) Type Rh positive 02/28/25 05:36 Antibody Screen Negative 02/28/25 05:36 Vitals Last Vital Signs Temp 98.2 F 03/01/25 04:30 Pulse 82 03/01/25 04:31 Resp 16 03/01/25 04:30 BP 129/75 03/01/25 04:31 Pulse Ox 99 02/28/25 22:32 O2 Del Method Room Air 02/28/25 22:32 Results Labs [facility] ([facility]): Blood Type A Positive 02/28/25 Antibody Screen Negative 02/28/25 Hct 27.2 % (36-47) L 02/28/25 Hgb 9.20 g/dL (11.27-16.99) L 02/28/25 Rho(D) Type Rh positive 02/28/25 Plt Count 160 10^3/cmm (157-399) 02/28/25 TSH 1.73 uIU/mL (0.27-4.20) 03/10/24 Uric Acid 4.1 mg/dL (2.4-5.7) 02/09/25 HCG, Qual Positive (Negative) H 08/25/24 Discharge Plan Discharge Patient Disposition: Home Condition: Stable Prescriptions: New ibuprofen 800 mg Tablet 800 mg PO TID Qty: 45 0RF hydrocodone-acetaminophen 5-325 mg Tablet 1 tab PO Q6H PRN (Reason: Moderate To Severe Pain) Qty: 28 0RF docusate sodium 100 mg Capsule 100 mg PO BID Qty: 14 0RF Continued Prena1 Chew 1 100 ml PO 1XD Discharge Orders: Discharge Order (Routine); Ordered 03/01/25 Ordered By: Raf Lin Discharge Diet: Usual diet Discharge Activity: Limit activity as instructed Patient Instructions: Opioid Safety Discharge Attestations [employer] Time Spent in Discharge Care*: less than 30 min Coding Level of Care Code Acute Code for Chg Fwd Diagnoses History of section Z98.891 38 weeks gestation of Z3A.38 Gestational diabetes mellitus O24.419 Morbid obesity E66.01 Sterilization consult Z30.09
[2025-03-01 09:08] VITALS: BP 121/75; PULSE 80
[2025-03-01] MEDS: PRENATAL VIT NO.130/IRON/FOLIC 1 EACH TABLET PO (09:14)
[2025-03-01] MEDS: ibuprofen 800 mg tablet PO (09:14)
[2025-03-01] MEDS: ferrous sulfate EC 325 mg Tablet PO (09:14)
[2025-03-01] MEDS: docusate sodium 100 mg Capsule PO (09:14)
--- NOTE | 2025-03-01 09:35 | PC.NURSE ---
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
[2025-03-01 13:30] VITALS: RESP 18; TEMP 36.9
[2025-03-01 13:34] VITALS: BP 149/88; PULSE 89
== END 2025-03-01 13:50 | disposition home or self-care (01) | DRG 785 ==
PROVIDERS: Admitting Provider Family Medicine; PCP Family Medicine; Visit Provider Family Medicine
PROC: 10D00Z1 Extraction of Products of Conception, Low, Open Approach (ICD-10-PCS; CPT 59514; principal; 2025-02-28 07:00)
DX: O34.211 Maternal care for low transverse scar from previous cesarean delivery (principal); O99.214 Obesity complicating childbirth; E66.01 Morbid (severe) obesity due to excess calories; Z3A.38 38 weeks gestation of pregnancy; O69.81X0 Labor and delivery complicated by cord around neck, without compression, not applicable or unspecified; O24.410 Gestational diabetes mellitus in pregnancy, diet controlled; Z37.0 Single live birth; N85.8 Other specified noninflammatory disorders of uterus; Z30.2 Encounter for sterilization
CPT/HCPCS: 36415; 36416; 51702; 59025; 59409; 82962; 85025; 85027; 86850; 86900; 88302; 96374; 99211; J0690; J1200; J1885; J2274; J2371; J2405; J2765; J3010; J3490; J7030; J7121; J9999

== ENCOUNTER 2025-07-02 17:13 | Emergency (ER) | payer SELFPAY ==
[2025-07-02 17:20] VITALS: BP 130/87; PULSE 111; RESP 16; TEMP 37.2; O2SAT 100
[2025-07-02 17:39] VITALS: BP 113/89; PULSE 105; RESP 16; O2SAT 97
--- NOTE | 2025-07-02 17:56 | USR_ITS ---
PROCEDURE INFORMATION: Exam: US Right Limited Joint or Other Non-Vascular Extremity Structure Exam date and time: 07/02/2025 6:39 PM Age: 29 years old Clinical indication: Pain; Upper arm; Right; Additional info: Right axillary region TECHNIQUE: Imaging protocol: US right limited joint or other nonvascular extremity structure. Real-time ultrasound with image documentation. Exam focused on the area of clinical interest. COMPARISON: No relevant prior studies available. FINDINGS: Soft tissues: Unremarkable. No loculated collections. Other findings: Skin thickening in the soft tissues of concern in the right axilla with a heterogeneously hypoechoic collection noted measuring approximately 1.8 x 1.3 x 0.9 cm. There is mildly increased color Doppler vascularity in the superficial soft tissues. US/US soft tissue/extremity [id number] IMPRESSION: Skin thickening with a heterogeneously hypoechoic fluid collection in the soft tissues of concern measuring up to 1.8 cm. Findings are concerning for cellulitis with abscess formation. Recommend clinical correlation.
[2025-07-02] MEDS: HYDROcodone-acetaminophen 7.5-325 mg Tablet 1 TAB PO (18:00)
--- NOTE | 2025-07-02 18:28 | W.ED.SKABFB ---
Documented by User: MELISSA Ryan 07/02/25 22:57 HPI - Skin/Abscess/Foreign Bdy General: Chief complaint: Skin/Abscess/Foreign Body Stated complaint: rt armpit spider bite Time Seen by Provider: 07/02/25 17:18 Source: patient Mode of arrival: ambulatory Limitations: no limitations History of Present Illness: Patient is a 29-year-old female who presents the emergency department complaining of right axillary pain and swelling. States that she was seen at [facility] ER for a spider bite, diagnosed with brown recluse bite and treated with Bactrim. Patient states bite has gotten worse and redness and swelling under her arm is gotten so severe that her right arm is going numb to the underside. No fever or systemic symptoms reported otherwise. Reporting severe 10/10 pain at this time, she is tearful and anxious and requesting something for pain. MD complaint: insect bite/sting Onset (ago): day(s) Tetanus up to date: yes Location: RUE Severity: severe Severity scale (1-10): 10 Associated symptoms: Deny chills, fever(s), nausea or vomiting Treatments prior to arrival: antibiotic Related Data Home Medications ?Medication ?Instructions ?Recorded ?Confirmed Prena1 Chew 1 100 ml PO 1XD 02/09/25 06/05/25 Previous Rx's ?Medication ?Instructions ?Recorded docusate sodium 100 mg capsule 100 mg PO BID #14 caps 03/01/25 hydrocodone 5 mg-acetaminophen 325 1 tab PO Q6H PRN Moderate To 03/01/25 mg tablet Severe Pain #28 tabs cyclobenzaprine 5 mg tablet 5 mg PO BID PRN muscle spasm #30 06/01/25 tabs ibuprofen 800 mg tablet 800 mg PO TID #45 tabs 06/01/25 medroxyprogesterone 150 mg/mL 150 mg IM ONCE #1 mL 06/01/25 intramuscular suspension (Depo-Provera) doxycycline hyclate 100 mg tablet 100 mg PO BID 10 days #20 tabs 07/02/25 Allergies Allergy/AdvReac Type Severity Reaction Status Date / Time morphine Allergy ADR-Itching Verified 07/02/25 17:38 sulfamethoxazole (From Allergy ADR-Nausea Verified 07/02/25 17:38 Bactrim) trimethoprim (From Bactrim) Allergy ADR-Nausea Verified 07/02/25 17:38 Review of Systems General: Reports: 10 or more systems reviewed and unremarkable except in HPI and below Const: Denies: fever(s) or chills Card: Denies: chest pain Resp: Denies: dyspnea GI: Denies: abdominal pain, nausea, vomiting or diarrhea Musc: Reports: extremity pain (Right upper extremity); Denies: joint pain Skin/Breast: Reports: erythema, skin pain, skin tenderness and non-healing lesions; Denies: rash or new lesions Neuro: Reports: numbness in extremities (Right upper extremity); Denies: headache(s) PFSH ED PFSH: Medical History Labial fusion History of gestational hypertension History of pre-eclampsia Surgical History H/O eye surgery (~1998) left eye H/O section (~2013) 1----06/10/2014, male([place]), 6 lbs 7.5 ozs, 38 wks, epidural, delivery unreasurring monitoring, delivered by Dr Maurice Olsen, at [facility], [place], [place]. No complications History of tonsillectomy and adenoidectomy Family History Father Hyperlipidemia Hypertension Denies family history of Diabetes Heart disease Family history of thyroid problem Stroke Social History Smoking and tobacco/nicotine status: never used tobacco/nicotine Substance/Drug Use: never Additional social history: - Tobacco use: Denies Alcohol use: Denies Drug use: Denies Physical Exam Const: COMMON NORMALS: patient oriented x3, alert and well nourished GENERAL APPEARANCE: anxious (Tearful) NUTRITIONAL APPEARANCE: obese ORIENTATION/CONSCIOUSNESS: Yes awake HENMT: COMMON NORMALS: normocephalic and atraumatic HEAD & SCALP: normocephalic and atraumatic Neck/C-Spine: COMMON NORMALS: full ROM, no lymphadenopathy, supple and no meningeal signs Resp: COMMON NORMALS: normal respiratory effort, No use of accessory muscles and clear to auscultation bilaterally AUSCULTATION: clear to auscultation bilaterally Cardio: COMMON NORMALS: regular rate and regular rhythm RATE: regular rate RHYTHM: regular rhythm Extremity: COMMON NORMALS: full ROM and capillary refill normal NARRATIVE EXTREMITY EXAM: There is erythema and induration to inner aspect of proximal right upper extremity. No obvious fluctuance at this time. No red streaking. Severe tenderness to palpation of the area. Neuro: COMMON NORMALS: patient oriented x3 SENSORIUM/ORIENTATION: Yes alert MENINGEAL SIGNS: Yes no meningeal signs Skin: COMMON NORMALS: no rashes or lesions noted, no wounds and turgor normal GENERAL SKIN EXAM: no rashes or lesions noted and turgor normal Procedures Abscess I/D Site: upper extremity (Axillary region) Side (if applicable): right Local Anesthetic: lidocaine 1% and with epi Amount of anesthesia used (mL): 4 Technique: incised with #11 blade Amount of fluid expressed (mL): 25 Irrigation: Yes Packing used?: none Course Vital Signs: Vital signs: Vital Signs Temperature 98.9 F 07/02/25 17:20 Pulse Rate 99 07/02/25 19:42 Respiratory Rate 16 07/02/25 17:39 Blood Pressure 100/60 07/02/25 19:42 Pulse Oximetry 99 07/02/25 19:42 Oxygen Delivery Me thod Room Air 07/02/25 17:20 MDM - Skin/Abscess/Foreign Bdy Medicial Decision Making Patient was on Bactrim, reportedly diagnosed with spider bite few days ago has been taking it for 2 days and states pain in the right axillary region has gotten worse, as well as redness. Still had no systemic symptoms to report. On exam there was erythema, mostly induration palpable and ultrasound did confirm that there was concern for abscess formation. This area was incised and about 25 cc of purulent material was drained, incision was too small for any packing. It was dressed appropriately and we will switch antibiotic to doxycycline. Strict return precautions for any worsening infection was given to the patient, and she notes improvement of her symptoms after drainage. Lab Data Radiology Impressions Soft Tissue Ultrasound 07/02/25 17:56 IMPRESSION: Skin thickening with a heterogeneously hypoechoic fluid collection in the soft tissues of concern measuring up to 1.8 cm. Findings are concerning for cellulitis with abscess formation. Recommend clinical correlation. All radiology interpretation(s) finalized by discharge Discharge Plan Discharge Patient Disposition: Home Clinical Impression: Abscess of axilla, right Condition: Stable Prescriptions: New doxycycline hyclate 100 mg tablet 100 mg PO BID 10 Days Qty: 20 0RF No Action medroxyprogesterone [Depo-Provera] 150 mg/mL suspension 150 mg IM ONCE Qty: 1 3RF ibuprofen 800 mg tablet 800 mg PO TID Qty: 45 0RF cyclobenzaprine 5 mg tablet 5 mg PO BID PRN (Reason: muscle spasm) Qty: 30 0RF hydrocodone-acetaminophen 5-325 mg Tablet 1 tab PO Q6H PRN (Reason: Moderate To Severe Pain) Qty: 28 0RF docusate sodium 100 mg Capsule 100 mg PO BID Qty: 14 0RF Prena1 Chew 1 100 ml PO 1XD Discharge Orders: Discharge ED (Routine); Ordered 07/02/25 Ordered By: Atul Mariscal Referrals: Raf Lin MD [Primary Care Provider, [facility]] Patient Instructions: Patient Portal & El[facility] Instructions Activity Restrictions/Additional Instructions: Abscess discharge Thank you for coming in today. The abscess (a pocket of infection) under the right armpit was opened and drained. It was small and did not need packing. The most important part of healing is keeping the area clean, covered, and allowing it to drain while it heals. Antibiotics can help some people heal and lower the chance of another infection. Based on today?s plan, trimethoprim?sulfamethoxazole (Bactrim) is being stopped, and doxycycline will be started. What to do at home - Keep the bandage clean and dry today. If it becomes wet or dirty, change it. - Starting tomorrow, clean the wound once daily: 1) Wash hands with soap and water. 2) Gently remove the old bandage. 3) Clean the area with warm soapy water or a saline rinse. Let water run over the opening; do not scrub inside. 4) Pat dry with clean gauze or a clean towel. 5) Apply a thin layer of plain petroleum jelly (optional) and cover with clean dry gauze or an adhesive bandage. - It is normal to see a small amount of drainage on the bandage for a few days as the infection clears. Change the bandage if it becomes wet with drainage. - Do not squeeze the wound or try to reopen it. - Avoid shaving or using deodorant directly over the area until the skin has closed. Consider using fragrance-free deodorant on the other side only during healing. - Showering is fine after the first 24 hours. Avoid soaking in baths, pools, or hot tubs until the skin has fully closed. Medicines - Start doxycycline: take it twice daily for 10 days. Take with a full glass of water and stay upright for 30 minutes after to avoid stomach irritation. Use sunscreen and avoid excessive sun exposure (it can cause sun sensitivity). Do not take at the same time as iron, calcium, magnesium, or antacids; separate by at least 2 hours. - Stop trimethoprim?sulfamethoxazole (Bactrim) now, as discussed. - For pain, acetaminophen or ibuprofen can be used if normally safe for you. Follow the dosing on the bottle. - If any antibiotic side effects occur (rash, severe diarrhea, trouble swallowing, severe stomach pain), stop the medication and seek care. Activity and general care - Light activity is okay. Avoid tight clothing that rubs the armpit. - Wash hands before and after touching the bandage. - Do not share towels, razors, or deodorant while the wound is healing to lower the chance of spreading germs. - If given, use warm compresses (warm, not hot) over the bandage for 10?15 minutes, 3?4 times a day to help drainage. What to expect - Redness and tenderness should slowly improve over 48?72 hours. - Some drainage is expected for a few days. The amount should decrease over time. Reasons to return or seek urgent care - Fever 100.4?F (38?C) or higher, chills, or feeling very unwell. - Worsening redness, swelling, or pain after 48?72 hours, especially if redness spreads more than 2 inches (5 cm) from the wound edge. - Increasing, foul-smelling, or pus-like drainage after initial improvement. - The skin closes too quickly and a new pocket of swelling forms, or pain becomes throbbing and severe. - Red streaks on the skin, dizziness, vomiting, or inability to keep antibiotics down. - Signs of an allergic reaction to doxycycline (hives, swelling of lips/tongue, trouble breathing). - Severe diarrhea (possible C. difficile) or more than 3 watery stools per day while on or after antibiotics. Follow-up - A check-in is recommended in 48?72 hours if symptoms are not clearly improving, or sooner if any of the warning signs above occur. Why these steps matter - Opening and draining the abscess is the main treatment and usually leads to healing; small abscesses typically do not benefit from packing, which can add pain without improving outcomes. - Short courses of antibiotics active against common germs (including MRSA) can improve chances of cure and lower the risk of new lesions in some patients after drainage; adherence to the full course is important when prescribed. Print Language: Korean Coding Level of Care Code ED Surgical Training Specialist for Chg Fwd Documented by User: Fred Cope, DO 07/02/25 23:04 HPI - Skin/Abscess/Foreign Bdy General: Chief complaint: Skin/Abscess/Foreign Body Stated complaint: rt armpit spider bite Time Seen by Provider: 07/02/25 17:18 Related Data Home Medications ?Medication ?Instructions ?Recorded ?Confirmed Prena1 Chew 1 100 ml PO 1XD 02/09/25 06/05/25 Previous Rx's ?Medication ?Instructions ?Recorded docusate sodium 100 mg capsule 100 mg PO BID #14 caps 03/01/25 hydrocodone 5 mg-acetaminophen 325 1 tab PO Q6H PRN Moderate To 03/01/25 mg tablet Severe Pain #28 tabs cyclobenzaprine 5 mg tablet 5 mg PO BID PRN muscle spasm #30 06/01/25 tabs ibuprofen 800 mg tablet 800 mg PO TID #45 tabs 06/01/25 medroxyprogesterone 150 mg/mL 150 mg IM ONCE #1 mL 06/01/25 intramuscular suspension (Depo-Provera) doxycycline hyclate 100 mg tablet 100 mg PO BID 10 days #20 tabs 07/02/25 Allergies Allergy/AdvReac Type Severity Reaction Status Date / Time morphine Allergy ADR-Itching Verified 07/02/25 17:38 sulfamethoxazole (From Allergy ADR-Nausea Verified 07/02/25 17:38 Bactrim) trimethoprim (From Bactrim) Allergy ADR-Nausea Verified 07/02/25 17:38 [facility] ED PFSH: Medical History Labial fusion History of gestational hypertension History of pre-eclampsia Surgical History H/O eye surgery (~1998) left eye H/O section (~2013) 1----06/10/2014, male([place]), 6 lbs 7.5 ozs, 38 wks, epidural, delivery unreasurring monitoring, delivered by Dr Maurice Olsen, at [place], [place]. No complications History of tonsillectomy and adenoidectomy Family History Father Hyperlipidemia Hypertension Denies family history of Diabetes Heart disease Family history of thyroid problem Stroke Social History Smoking and tobacco/nicotine status: never used tobacco/nicotine Substance/Drug Use: never Additional social history: - Tobacco use: Denies Alcohol use: Denies Drug use: Denies Course Vital Signs: Vital signs: Vital Signs Temperature 98.9 F 07/02/25 17:20 Pulse Rate 99 07/02/25 19:42 Respiratory Rate 16 07/02/25 17:39 Blood Pressure 100/60 07/02/25 19:42 Pulse Oximetry 99 07/02/25 19:42 Oxygen Delivery Me thod Room Air 07/02/25 17:20 MDM - Skin/Abscess/Foreign Bdy Medicial Decision Making Patient was on Bactrim, reportedly diagnosed with spider bite few days ago has been taking it for 2 days and states pain in the right axillary region has gotten worse, as well as redness. Still had no systemic symptoms to report. On exam there was erythema, mostly induration palpable and ultrasound did confirm that there was concern for abscess formation. This area was incised and about 25 cc of purulent material was drained, incision was too small for any packing. It was dressed appropriately and we will switch antibiotic to doxycycline. Strict return precautions for any worsening infection was given to the patient, and she notes improvement of her symptom Patient was originally seen by Mr. Davey PA-C. I agree with his history, evaluation, and management. Lab Data Radiology Impressions Soft Tissue Ultrasound 07/02/25 17:56 IMPRESSION: Skin thickening with a heterogeneously hypoechoic fluid collection in the soft tissues of concern measuring up to 1.8 cm. Findings are concerning for cellulitis with abscess formation. Recommend clinical correlation. Discharge Plan Discharge Patient Disposition: Home Clinical Impression: Abscess of axilla, right Condition: Stable Prescriptions: New doxycycline hyclate 100 mg tablet 100 mg PO BID 10 Days Qty: 20 0RF No Action medroxyprogesterone [Depo-Provera] 150 mg/mL suspension 150 mg IM ONCE Qty: 1 3RF ibuprofen 800 mg tablet 800 mg PO TID Qty: 45 0RF cyclobenzaprine 5 mg tablet 5 mg PO BID PRN (Reason: muscle spasm) Qty: 30 0RF hydrocodone-acetaminophen 5-325 mg Tablet 1 tab PO Q6H PRN (Reason: Moderate To Severe Pain) Qty: 28 0RF docusate sodium 100 mg Capsule 100 mg PO BID Qty: 14 0RF Prena1 Chew 1 100 ml PO 1XD Discharge Orders: Discharge ED (Routine); Ordered 07/02/25 Ordered By: Atul Mariscal Referrals: Raf Lin MD [Primary Care Provider, [facility]] Patient Instructions: Patient Portal & [facility] Instructions Activity Restrictions/Additional Instructions: Abscess discharge Thank you for coming in today. The abscess (a pocket of infection) under the right armpit was opened and drained. It was small and did not need packing. The most important part of healing is keeping the area clean, covered, and allowing it to drain while it heals. Antibiotics can help some people heal and lower the chance of another infection. Based on today?s plan, trimethoprim?sulfamethoxazole (Bactrim) is being stopped, and doxycycline will be started. What to do at home - Keep the bandage clean and dry today. If it becomes wet or dirty, change it. - Starting tomorrow, clean the wound once daily: 1) Wash hands with soap and water. 2) Gently remove the old bandage. 3) Clean the area with warm soapy water or a saline rinse. Let water run over the opening; do not scrub inside. 4) Pat dry with clean gauze or a clean towel. 5) Apply a thin layer of plain petroleum jelly (optional) and cover with clean dry gauze or an adhesive bandage. - It is normal to see a small amount of drainage on the bandage for a few days as the infection clears. Change the bandage if it becomes wet with drainage. - Do not squeeze the wound or try to reopen it. - Avoid shaving or using deodorant directly over the area until the skin has closed. Consider using fragrance-free deodorant on the other side only during healing. - Showering is fine after the first 24 hours. Avoid soaking in baths, pools, or hot tubs until the skin has fully closed. Medicines - Start doxycycline: take it twice daily for 10 days. Take with a full glass of water and stay upright for 30 minutes after to avoid stomach irritation. Use sunscreen and avoid excessive sun exposure (it can cause sun sensitivity). Do not take at the same time as iron, calcium, magnesium, or antacids; separate by at least 2 hours. - Stop trimethoprim?sulfamethoxazole (Bactrim) now, as discussed. - For pain, acetaminophen or ibuprofen can be used if normally safe for you. Follow the dosing on the bottle. - If any antibiotic side effects occur (rash, severe diarrhea, trouble swallowing, severe stomach pain), stop the medication and seek care. Activity and general care - Light activity is okay. Avoid tight clothing that rubs the armpit. - Wash hands before and after touching the bandage. - Do not share towels, razors, or deodorant while the wound is healing to lower the chance of spreading germs. - If given, use warm compresses (warm, not hot) over the bandage for 10?15 minutes, 3?4 times a day to help drainage. What to expect - Redness and tenderness should slowly improve over 48?72 hours. - Some drainage is expected for a few days. The amount should decrease over time. Reasons to return or seek urgent care - Fever 100.4?F (38?C) or higher, chills, or feeling very unwell. - Worsening redness, swelling, or pain after 48?72 hours, especially if redness spreads more than 2 inches (5 cm) from the wound edge. - Increasing, foul-smelling, or pus-like drainage after initial improvement. - The skin closes too quickly and a new pocket of swelling forms, or pain becomes throbbing and severe. - Red streaks on the skin, dizziness, vomiting, or inability to keep antibiotics down. - Signs of an allergic reaction to doxycycline (hives, swelling of lips/tongue, trouble breathing). - Severe diarrhea (possible C. difficile) or more than 3 watery stools per day while on or after antibiotics. Follow-up - A check-in is recommended in 48?72 hours if symptoms are not clearly improving, or sooner if any of the warning signs above occur. Why these steps matter - Opening and draining the abscess is the main treatment and usually leads to healing; small abscesses typically do not benefit from packing, which can add pain without improving outcomes. - Short courses of antibiotics active against common germs (including MRSA) can improve chances of cure and lower the risk of new lesions in some patients after drainage; adherence to the full course is important when prescribed. Print Language: Korean Coding Level of Care Code ED Surgical Training Specialist for Conrado Loja
[2025-07-02] MEDS: BUPivacaine 0.5% INJ 10 mL INJECTION (18:56)
[2025-07-02 19:42] VITALS: BP 100/60; PULSE 99; O2SAT 99
--- OUTSIDE RECORDS SUMMARY | 2025-07-05 07:48 | XMS_ITS | Patient Health Record ---
Author Organization [facility] Address [address] [place] [address] Care Team Providers Care Portfolio Architect Name Role Phone Migration, Provider Primary Care Provider Danette spencer Reason For Referral No Information Medications Medication SIG (Take, Route, Frequency, Duration) Notes Start Date End Date Status Nortriptyline 25 MG Oral Capsule Nortriptyline 25 MG Oral Capsule 01/01/2017 Active Dicyclomine Hydrochloride 10 MG Oral Capsule [Bentyl] Dicyclomine Hydrochloride 10 MG Oral Capsule [Bentyl] 09/22/2016 Active Social History Social History Additional Details Category Social Info Options Details zzMigrated Social History Migrated Social History Smoking Status:Never smoked tobacco (finding) Plan Of Treatment No Information
== END 2025-07-02 19:48 | disposition home or self-care (01) ==
PROVIDERS: Emergency Provider Physician Assistant; PCP Family Medicine
DX: L02.411 Cutaneous abscess of right axilla (principal); T63.331A Toxic effect of venom of brown recluse spider, accidental (unintentional), initial encounter; Z88.5 Allergy status to narcotic agent; Z88.2 Allergy status to sulfonamides
CPT/HCPCS: 10060; 76882; 99284; J3490; J9999; Q0162

== ENCOUNTER 2025-07-05 16:51 | Emergency (ER) | payer SELFPAY ==
[2025-07-05 17:02] VITALS: BP 143/86; PULSE 75; TEMP 36.8; O2SAT 99; BMI 43.4
--- NOTE | 2025-07-05 18:25 | W.ED.SKABFB ---
HPI - Skin/Abscess/Foreign Bdy General: Chief complaint: Skin/Abscess/Foreign Body Stated complaint: R arm lanced 07/02 getting worse Time Seen by Provider: 07/05/25 18:17 Source: patient Mode of arrival: ambulatory Limitations: no limitations History of Present Illness: Patient is a 29-year-old female presents to ED today for continued concerns regarding a right axillary abscess. Patient states several days ago she was seen at the [facility] ED and was told that symptoms were related to a spider bite and was placed on Bactrim. She states due to worsening symptoms, she was seen here in our emergency department on 07/02 and had an ultrasound performed and subsequent incision and drainage. No packing or cultures were obtained. Patient states she was placed on Doxycycline antibiotics-is on day 3 of a 10 day course. She continues to feel like symptoms are not improving. She is not having any systemic symptoms apart from some nausea. MD complaint: abscess/boil Onset (ago): day(s) Tetanus up to date: yes Location: RUE (axilla) Severity: moderate Relieving factors: none Exacerbating factors: none Context: none Associated symptoms: Reports no associated symptoms and nausea; Deny chills or fever(s) Related Data Home Medications ?Medication ?Instructions ?Recorded ?Confirmed Prena1 Chew 1 100 ml PO 1XD 02/09/25 06/05/25 Previous Rx's ?Medication ?Instructions ?Recorded docusate sodium 100 mg capsule 100 mg PO BID #14 caps 03/01/25 hydrocodone 5 mg-acetaminophen 325 1 tab PO Q6H PRN Moderate To 03/01/25 mg tablet Severe Pain #28 tabs cyclobenzaprine 5 mg tablet 5 mg PO BID PRN muscle spasm #30 06/01/25 tabs ibuprofen 800 mg tablet 800 mg PO TID #45 tabs 06/01/25 medroxyprogesterone 150 mg/mL 150 mg IM ONCE #1 mL 06/01/25 intramuscular suspension (Depo-Provera) doxycycline hyclate 100 mg tablet 100 mg PO BID 10 days #20 tabs 07/02/25 Allergies Allergy/AdvReac Type Severity Reaction Status Date / Time morphine Allergy ADR-Itching Verified 07/05/25 17:07 sulfamethoxazole (From Allergy ADR-Nausea Verified 07/05/25 17:07 Bactrim) trimethoprim (From Bactrim) Allergy ADR-Nausea Verified 07/05/25 17:07 Review of Systems Const: Denies: fever(s), chills, body aches, fatigue or malaise GI: Reports: nausea Musc: Denies: neck pain, back pain, joint pain or joint swelling Skin/Breast: Reports: other (pain/edema R axillary region) Neuro: Denies: numbness in extremities or sensory changes PFSH ED PFSH: Medical History Labial fusion History of gestational hypertension History of pre-eclampsia Surgical History H/O eye surgery (~1998) left eye H/O section (~2013) 1----06/10/2014, male([facility]), 6 lbs 7.5 ozs, 38 wks, epidural, delivery unreasurring monitoring, delivered by Dr Maurice Olsen, at [place], [place]. No complications History of tonsillectomy and adenoidectomy Family History Father Hyperlipidemia Hypertension Denies family history of Diabetes Heart disease Family history of thyroid problem Stroke Social History Smoking and tobacco/nicotine status: never used tobacco/nicotine Substance/Drug Use: never Additional social history: - Tobacco use: Denies Alcohol use: Denies Drug use: Denies Physical Exam Const: COMMON NORMALS: no acute distress, no limitations, alert and well nourished GENERAL APPEARANCE: cooperative NUTRITIONAL APPEARANCE: obese (BMI 43.5) morbidly obese Resp: COMMON NORMALS: normal respiratory effort and clear to auscultation bilaterally AUSCULTATION: clear to auscultation bilaterally Cardio: COMMON NORMALS: regular rate and regular rhythm RATE: regular rate RHYTHM: regular rhythm Extremity: NARRATIVE EXTREMITY EXAM: large amount of induration to R axillary region without obvious area of central fluctuance; no significant cellultis Neuro: COMMON NORMALS: moves all extremities, no focal motor deficits and no sensory deficits noted SENSORIUM/ORIENTATION: Yes alert Skin: NARRATIVE SKIN EXAM: see above Course Vital Signs: Vital signs: Vital Signs Temperature 98.2 F 07/05/25 17:02 Pulse Rate 75 07/05/25 17:02 Blood Pressure 143/86 07/05/25 17:02 Pulse Oximetry 99 07/05/25 17:02 Oxygen Delivery Me thod Room Air 07/05/25 17:02 MDM - Skin/Abscess/Foreign Bdy Medicial Decision Making Was in with patient during her US and spoke to US pavithra Waller during scan. There is nothing at this time that looks amenable to incision and drainage. Patient will be discharged home with recommendations to continue her doxycycline. She does have follow-up with primary care tomorrow. Medical Records I reviewed the patient's medical records. XR interpretation done by ED provider, pending radiology final review (per Sridhar arshad-no drainable abscess present) Discharge Plan Discharge Patient Disposition: Home Clinical Impression: Abscess of axilla, right Condition: Stable Prescriptions: No Action medroxyprogesterone [Depo-Provera] 150 mg/mL suspension 150 mg IM ONCE Qty: 1 3RF ibuprofen 800 mg tablet 800 mg PO TID Qty: 45 0RF cyclobenzaprine 5 mg tablet 5 mg PO BID PRN (Reason: muscle spasm) Qty: 30 0RF hydrocodone-acetaminophen 5-325 mg Tablet 1 tab PO Q6H PRN (Reason: Moderate To Severe Pain) Qty: 28 0RF docusate sodium 100 mg Capsule 100 mg PO BID Qty: 14 0RF Prena1 Chew 1 100 ml PO 1XD doxycycline hyclate 100 mg tablet 100 mg PO BID 10 Days Qty: 20 0RF Discharge Orders: Discharge ED (Routine); Ordered 07/05/25 Ordered By: Susie Kent Referrals: Mel Steen CONTINUOUS IMPROVEMENT CONSULTANT [Primary Care Provider] Patient Instructions: Patient Portal & Elpidio Instructions Activity Restrictions/Additional Instructions: As we discussed, ultrasound imaging of your right axillary region did not show any fluid collection that would be amendable to repeat incision and drainage today. Recommend you continue your current antibiotics and plan to follow-up with primary care tomorrow. Print Language: German Coding Level of Care Code ED Entertainment Usher for Conrado Loja
--- NOTE | 2025-07-05 18:55 | USR_ITS ---
PROCEDURE INFORMATION: Exam: US Right Limited Joint or Other Non-Vascular Extremity Structure Exam date and time: 07/05/2025 8:56 PM Age: 29 years old Clinical indication: Pain; Upper arm; Prior surgery; Surgery date: 3-7 days post-operative; Surgery type: Right axillary abscess drainage 3 days ago; Additional info: R axillary; Abscess? TECHNIQUE: Imaging protocol: US right limited joint or other nonvascular extremity structure. Real-time ultrasound with image documentation. Exam focused on the area of clinical interest. COMPARISON: US soft tissue/extremity [id number] 07/02/2025 6:39 PM FINDINGS: Soft tissues: Unremarkable. No loculated collections. US/US soft tissue/extremity [id number] IMPRESSION: Unremarkable US.
== END 2025-07-05 21:18 | disposition home or self-care (01) ==
PROVIDERS: Emergency Provider Physician Assistant; PCP Registered Nurse School
DX: L02.411 Cutaneous abscess of right axilla (principal); I10 Essential (primary) hypertension
CPT/HCPCS: 76882; 99284

== ENCOUNTER → 2025-10-24 12:10 | Outpatient (BNVA) | payer BC, MEDICAID, SELFPAY | PROVIDERS: PCP Nurse Practitioner Family; Visit Provider Nurse Practitioner Family | DX: G43.109 Migraine with aura, not intractable, without status migrainosus (principal) | CPT/HCPCS: 80053; 84443; 85025 ==

== ENCOUNTER 2025-10-30 13:06 | Outpatient (CLI) | payer BC, MEDICAID, SELFPAY | END 2025-10-30 13:07 | disposition home or self-care (01) | LOC: LAB 11-02 08:33 | PROVIDERS: PCP Nurse Practitioner Family; Visit Provider Nurse Practitioner Family | DX: N39.9 Disorder of urinary system, unspecified (principal); R31.9 Hematuria, unspecified; R71.8 Other abnormality of red blood cells | CPT/HCPCS: 80053; 81003; 85025; 87086 ==

== ENCOUNTER → 2025-11-01 13:35 | Outpatient (BNVA) | payer BC, MEDICAID, SELFPAY | PROVIDERS: PCP Nurse Practitioner Family; Visit Provider Nurse Practitioner Family | DX: R31.9 Hematuria, unspecified (principal); R71.8 Other abnormality of red blood cells | CPT/HCPCS: 81000; 82728; 83550 ==